=== PATIENT | female | born 1950 | race Two or more races ===

== ENCOUNTER 2024-09-16 03:01 | Emergency (ER) | payer MEDICARE, MEDICAID, SELFPAY ==
[2024-09-16 03:27] VITALS: PULSE 118; RESP 20; O2SAT 96; BMI 42.7
[2024-09-16 03:39] VITALS: BP 174/92; PULSE 70; RESP 18; TEMP 36.8; O2SAT 95
--- NOTE | 2024-09-16 03:40 | PD.EDARRY ---
ED Arrhythmia Palp. RME/HPI General Chief Complaint: Arrhythmia/Palpitations Stated Complaint: HEART PALPATATIONS Time Seen by Provider: 09/16/24 03:12 Arrival date/time: 09/16/24 03:01 RME / HPI RME / HPI narrative: Dr. Lyon?s Main ED Evaluation: 74yo female with a history of HTN, HLD BIBA from home presents to the ED for a chief complaint of palpitations. Patient states she started taking a new blood pressure medication yesterday morning (does not remember the name of it), reporting she's been feeling sick since. Patient states she woke up at 0200 having palpitations and was unable to go back to sleep, so she called 911 to come in for evaluation. Patient states she missed her dose of losartan last night. She denies any chest pain, shortness of breath, N/V or any other associated symptoms. No known allergies. Related Data Home Medications ?Medication ?Instructions ?Recorded ?Confirmed atorvastatin 40 mg tablet 40 mg PO QDAY 04/21/23 10/08/23 cholecalciferol (vitamin D3) 50 50 mcg PO QDAY 04/21/23 10/08/23 mcg (2,000 unit) capsule ferrous sulfate 325 mg (65 mg 325 mg PO QDAY 04/21/23 10/08/23 iron) tablet (FeroSul) metformin 500 mg tablet 500 mg PO BID 04/21/23 10/08/23 prazosin 1 mg capsule 1 mg PO TID 04/21/23 10/08/23 furosemide 20 mg tablet (Lasix) 20 mg PO QDAY 09/14/23 10/08/23 Allergies Allergy/AdvReac Type Severity Reaction Status Date / Time No Known Allergies Allergy Verified 09/22/23 04:57 Review of Systems Review of Systems Systems Reviewed: All systems reviewed, normal except as documented Past Medical History Past Medical History NEUROLOGIC: Negative Neurological Disorders, Cerebrovascular Accident, Transient Ischemic Attacks (TIA), Dementia, Alzheimer's Disease, Parkinson's Disease, Brain Tumor, Meningitis, Seizures, Epilepsy, Multiple Sclerosis, Cerebral Palsy, Amyotrophic Lateral Sclerosis (ALS/Marilyn Gehrig's), Guillain-[place] Syndrome, Spina Bifida, Paralysis, Peripheral Neuropathy, Martin's Palsy, Subdural Hematoma, Migraine, Head Trauma, Spinal Cord Injury or Traumatic Brain Injury CARDIAC: Positive Hypercholesterolemia and Hypertension; Negative Cardiac Disorders, Myocardial Infarction, Cardiac Arrhythmia, Atrial Fibrillation, Angina, Heart Murmur, Coronary Artery Disease, Atherosclerotic Heart Disease, Peripheral Vascular Disease, Aneurysm, Congestive Heart Failure, Congenital Heart Disease, Valvular Heart Disease, Rheumatic Fever, Cardiomyopathy, Edema, Pericarditis, Cellulitis, Deep Vein Thrombosis or Hypotension RESPIRATORY: Negative Chronic Obstructive Pulmonary Disease (COPD) or Asthma GASTROINTESTINAL: Positive Gastrointestinal Disorders, Gastroesophageal Reflux Disease and Obesity; Negative Hepatitis, Cirrhosis, Pancreatitis, Celiac Disease, Gall Bladder Disease, Gastrointestinal Bleed, Esophageal Varices, Shepard's Esophagus, Colitis, Ulcerative Colitis, Diverticulitis, Diverticulosis, Ulcer, Irritable Bowel, Crohn's Disease, Obstructive Bowel, Hiatal Hernia or Hemorrhoids GENITOURINARY: Negative Genitourinary Disorders, Renal Disease, Kidney Stones, Polycystic Kidney Disease, Neurogenic Bladder, Inguinal Hernia, Dialysis or Benign Prostatic Hyperplasia REPRODUCTIVE: Positive Previous Pregnancies; Negative Genital Herpes, Gonorrhea, Pelvic Inflammatory Disease, Syphilis or Uterine Prolapse MUSCULOSKELETAL: Positive Musculoskeletal Disorders and Arthritis; Negative Muscular Dystrophy, Myasthenia Gravis, Marfan's Syndrome, Rheumatoid Arthritis, Osteoporosis, Degenerative Disk Disease, Gout, Scoliosis, Carpal Tunnel Syndrome, Fibromyalgia, Fractures, Degenerative Joint Disease, Osteomyelitis or Poliovirus ENT: Negative Cataracts, Glaucoma, Blind, Retinal Detachment, Macular Degeneration, Ear Infection, Deafness, Head Trauma or Eye Prosthesis ENDOCRINE: Positive Endocrine Disorders and Diabetes Mellitus Type 2; Negative Diabetes Mellitus Type 1, Hypoglycemia, [place]'s Syndrome, [place]'s Disease, Hyperthyroidism, Hypothyroidism, Parathyroid Disease, Pituitary Disease, Systemic Lupus Erythematosus, Syndrome of Inappropriate Antidiuretic Hormone (SIADH), Adrenal Disease or Graves' Disease HEMATOLOGIC: Negative Blood Disorders, Anemia, Leukemia, Hemophilia, Thalassemia, Sickle Cell Disease or Clotting Problems PSYCHO/SOCIAL: Positive Anxiety OTHER HISTORY: Negative Hospitalization, Autoimmune Disease, Down Syndrome, Developmental Delay, Shingles, Falls, MRSA, Human Immunodeficiency Virus (HIV), Chicken Pox, Measles, Mumps, Rubella (Romanian Measles), Pertussis, Clostridium Difficile or Cancer Surgical History SURGICAL: Negative Pacemaker, Endocrine Surgery, Thyroidectomy, Ear Surgery, Tympanostomy Tube, Eye Surgery, Nose Surgery, Oral Surgery, Tonsillectomy, Adenoidectomy, Cochlear Implant, Corneal Transplant, Throat Surgery, Abdominal Surgery, Tracheostomy, Gastric Bypass Surgery, Gastrostomy, Bowel Surgery, Joint Replacement, Amputation, Open Reduction Internal Fixation, Arthroscopy, Neurologic Surgery or Brain Shunt Social History SMOKING STATUS: Never smoker SECOND HAND EXPOSURE: No SUBSTANCE USE: does not use ED Exam Narrative Physical exam: GENERAL APPEARANCE: alert and oriented x 4, well-developed, well-nourished, no acute distress VITALS: All vitals were reviewed and the pulse ox is 95% on room air, which is normal according to my interpretation. HEENT: Normocephalic, atraumatic; pupils equal, round, reactive to light; EOMI; mucous membranes pink, moist; oropharynx clear NECK: Supple LUNGS: CTABL; no wheezes, no rales, no rhonchi HEART: Regular rate, regular rhythm; normal S1, S2; no murmurs ABDOMEN: non distended; normal BS; soft, no tenderness, no guarding, no rebound; no masses, no organomegaly, no hernia BACK: no CVA tenderness EXTREMITIES: atraumatic; no edema NEUROLOGIC: awake; alert and oriented x4; cranial nerves II-XII grossly intact; no focal sensory or motor deficits PSYCHIATRIC: appropriate mood and affect SKIN: warm, dry, normal color; no rashes Course Course Course Narrative: CXR is ordered for determining the etiology of palpitations. Quality Measures none Arrhythmia/Palpitations MDM Narrative MDM Narrative:: Scribe Attestation: 09/16/24 - Britney Tipton am scribing for and in the presence of Dr. Lyon. Patient data External [place] [facility] [place] (Per chart review, patient was admitted here on 10/07/23 for Pyelonephritis, Urinary tract infection, History of ESBL E. coli infection.) Clinical information provided by:: patient Social determinants that could affect healthcare access:: none Patient has the following chronic illnesses:: HTN, HLD How is presenting disease/condition affected by chronic disease/condition?: uneffected by Evaluation data The following diagnostics were reviewed and interpreted by me:: lab results, radiology exam(s) and EKG tracing(s) Lab and/or radiology exams considered but not ordered:: none Interpretation Summary: CXR shows sharp costophrenic angles, normal cardiac silhouette, bilateral perihilar infiltrates, according to my interpretation. EKG done at 0346, NSR, rate of 68, left axis deviation, RBBB, generalized ST abnormalities, no STEMI, according to my interpretation. Labs are pending at sign out. Medications / Prescriptions Medications or Prescriptions considered but not ordered:: none Medication administrations:: see above, if any Consultations Consultation(s) initiated? (list below): No Diagnosis Differential diagnosis arrhythmia/palpitations: other (aFib RVR, SVT, anxiety reaction) Most likely diagnosis given after review of the tests above:: see clinical impression below Admission Indicated Admission indicated?: not indicated Admission Request Was there a request for admission?: No Disposition Plan Disposition Plan: other (specify) (Signed out to Dr. Ma at 0600 pending labs and final disposition.) Discharge Plan Prescriptions/Referrals Prescriptions/Med Rec: No Action atorvastatin 40 mg tablet 40 mg PO QDAY ferrous sulfate [FeroSul] 325 mg (65 mg iron) tablet 325 mg PO QDAY Patient Comments: take 1 tablet by mouth once daily cholecalciferol (vitamin D3) 50 mcg (2,000 unit) capsule 50 mcg PO QDAY Patient Comments: take 1 capsule by mouth once daily metformin 500 mg tablet 500 mg PO BID prazosin 1 mg capsule 1 mg PO TID Patient Comments: take 1 capsule by mouth twice a day furosemide [Lasix] 20 mg Tablet 20 mg PO QDAY Referrals: No Primary/Family,Physician [Primary Care Provider] - In 1 week Problem List Clinical Impression: Palpitations Patient/Caregiver Discharge Instructions Print Language: Somali
--- NOTE | 2024-09-16 03:42 | EKG_ITS ---
[facility] Test Date: 2024-09-16 Pat Name: JOHN FOOTE Department: Room: - Gender: Female Mail Room: : 1950 Requested By: Toni Hyde Order Number: [id number] Reading MD: Toni Hyde Measurements Intervals [place] Rate: 68 P: -13 [place]: 159 QRS: -39 QRSD: 145 T: 32 QT: 423 QTc: 453 Interpretive Statements SINUS RHYTHM LEFT AXIS DEVIATION [QRS AXIS < -30] RIGHT BUNDLE BRANCH BLOCK [120+ ms QRS DURATION, UPRIGHT V1, 40+ ms S IN I/aVL/V4/V5/V6] Compared to ECG 04/25/2023 04:22:25 Left-axis deviation now present /store/S0/[id number].pdf
--- NOTE | 2024-09-16 04:26 | XR_ITS ---
Examination: AP chest single view Technique one AP portable upright chest single view Exam date and time: September 16, 2024 0515 hours Comparison September 12, 2024 INDICATIONS: Chest pain today. FINDINGS: Mild pneumonia left base Mild prominence cardiac contour with moderate vascular congestion Intact osseous structures IMPRESSION: Mild pneumonia left base
[2024-09-16] MEDS: ACETAMINOPHEN 500 MG TABLET 1000 MG PO (04:52)
[2024-09-16 04:55] VITALS: PULSE 65
[2024-09-16 06:08] VITALS: BP 164/77; PULSE 67; RESP 20; TEMP 36.6; O2SAT 96
[2024-09-16 06:13] LABS: B-Type Natriuretic Peptide 94 pg/mL (0-100)
[2024-09-16 06:15] LABS: Alanine Aminotransferase 29 U/L (10-49); Albumin, Serum 3.6 gm/dL (3.4-4.8); Albumin/Globulin Ratio 1.6 (1.2-2.2); Alkaline Phosphatase 93 U/L (46-116); Anion Gap 4 (7-16); Aspartate Amino Transferase 22 U/L (0-34); BUN/Creatinine Ratio 26 Ratio (12-20); Bilirubin,Total 0.3 mg/dL (0.3-1.2); Blood Urea Nitrogen 23 mg/dL (9-23); Calcium 8.6 mg/dL (8.3-10.6); Calcium (Corrected) 8.9 mg/dL (8.5-10.1); Carbon Dioxide 34.5 mMol/L (20.0-31.0); Chloride 103 mMol/L (98-107); Creatinine (Component) 0.9 mg/dL (0.6-1.3); Estimated Creatinine Clearance 67.9 mL/min (>60); Globulin 2.3 gm/dL (2.3-3.5); Glucose 129 mg/dL (74-106); Lipase 44 U/L (12-53); Magnesium 2.1 mg/dL (1.6-2.6); Osmolality,Calculated 286 (275-295); Potassium 3.4 mMol/L (3.4-5.1); Sodium 141 mMol/L (136-145); Total Protein 5.9 gm/dL (5.7-8.2); Troponin I < 0.020 ng/mL (0.0-0.045); eGFR > 60 See Note
--- NOTE | 2024-09-16 06:46 | PD.EDADDENDU ---
Emergency Room Addendum Addendum Narrative: 0600: Care assumed from Dr. Lyon, the previous shift emergency physician. Past medical, surgical, social and family history reviewed. Vitals and home medications reviewed. I will assume the care of the patient at this time, pending labs and final disposition. Please refer to the emergency department record for history and examination from initial visit.?The following addendum documentation note is intended to reflect any pending information, findings, or radiology results not included in the patient?s initial chart. EMS notes reviewed by me. Nursing notes reviewed by me. Vital signs reviewed by me. [facility] medical records reviewed by me. Patient was admitted here 10/07/2023 through 10/14/2023 for acute pyelonephritis treatment and management. Chest xray interpreted by me shows a straighter heart border, left base atelectasis, otherwise no infiltrates. 0700: Patient reports feeling better. On examination patient is resting comfortably, in no distress. Patient aware of the pending CBC. 0744: Radiologist has interpreted CXR as left base pneumonia. Labs show no leukocytosis. Will DC patient home diagnosed with left basilar pneumonia and reaction to AMY inhibitor. I advised the patient take her antibiotics as prescribed and not resume the new medication. Advised she continue all of her other medications.
[2024-09-16 07:35] LABS: Basophils % (Auto) 0 % (0-2.5); Eosinophils # (Auto) 0.3 Thou/mm3 (0.0-0.5); Eosinophils % (Auto) 3 % (0-10); Hematocrit 38.7 % (36.0-46.0); Hemoglobin 12.6 g/dL (12.0-16.0); Immature Granulocytes % (Auto) 0 % (0-0); Immature Granulocytes Auto 0.03 Thou/mm3 (0.00-0.00); Lymphocytes # (Auto) 3.1 Thou/mm3 (1.0-4.8); Lymphocytes % (Auto) 30 % (10-50); Mean Corpuscular HGB Conc 32.6 g/dl (31.0-37.0); Mean Corpuscular Hemoglobin 30.2 pg (25.0-35.0); Mean Corpuscular Volume 93 fL (80-100); Monocytes # (Auto) 0.9 Thou/mm3 (0.0-0.8); Monocytes % (Auto) 9 % (0-12); Neutrophils # (Auto) 5.9 Thou/mm3 (1.8-7.7); Neutrophils % (Auto) 58 % (37-80); Nucleated Red Blood Cell % 0 /100 WBC (0); Platelet Count 272 Thou/mm3 (140-440); RDW Standard Deviation 44.1 fL (36.4-46.3); Red Blood Count 4.17 Miln/mm3 (4.00-5.20); White Blood Count 10.2 Thou/mm3 (3.6-11.0)
[2024-09-16 09:21] VITALS: BP 178/83; PULSE 63; RESP 18; TEMP 36.6
== END 2024-09-16 08:55 | disposition home or self-care (01) ==
PROVIDERS: Emergency Provider Emergency Medicine
DX: J18.9 Pneumonia, unspecified organism (principal); I45.10 Unspecified right bundle-branch block; I10 Essential (primary) hypertension; E78.00 Pure hypercholesterolemia, unspecified
CPT/HCPCS: 36415; 71045; 80053; 83690; 83735; 83880; 84484; 85025; 93005; 99283; A9270

== ENCOUNTER → 2024-11-11 | Outpatient (CLI) | payer MEDICARE, MEDICAID, SELFPAY ==
--- NOTE | 2024-11-11 | XR_ITS ---
Examination: Knee, left , 3 views Technique: Knee AP, lateral, oblique 3 views Date and time of exam: November 11, 2024 1216 hours INDICATIONS: Left knee pain beginning one year ago. FINDINGS: Severe osteopenia Severe narrowing medial patellofemoral joints No fractures IMPRESSION: Severe narrowing medial and patellofemoral joints
== END | disposition home or self-care (01) ==
PROVIDERS: PCP Orthopaedic Surgery; Referring Provider Orthopaedic Surgery; Visit Provider Orthopaedic Surgery
DX: M25.862 Other specified joint disorders, left knee (principal)
CPT/HCPCS: 73562

== ENCOUNTER 2025-03-25 12:06 | Inpatient (IN) | payer MEDICARE, MEDICAID, SELFPAY ==
[2025-03-25] VITALS (14 sets, daily range): BP systolic 114–183; BP diastolic 41–69; PULSE 60–80; RESP 16–88; TEMP 36.8–39.1; O2SAT 84–100; BMI 51.5
--- NOTE | 2025-03-25 12:25 | EKG_ITS ---
[facility] Test Date: 2025-03-25 Pat Name: JOHN FOOTE Department: Room: - Gender: Female [employer] T[employer]: : 1950 Requested By: Ac Chowdhury Order Number: [id number] Reading MD: Ac Chowdhury Measurements Intervals [place] Rate: 64 P: -15 [place]: 159 QRS: -28 QRSD: 145 T: 18 QT: 447 QTc: 462 Interpretive Statements SINUS RHYTHM WITH OCCASIONAL VENTRICULAR PREMATURE COMPLEXES BORDERLINE LEFT AXIS DEVIATION [QRS AXIS < -20] RIGHT BUNDLE BRANCH BLOCK [120+ ms QRS DURATION, UPRIGHT V1, 40+ ms S IN I/aVL/V4/V5/V6] Compared to ECG 09/16/2024 03:46:15 Ventricular premature complex(es) now present /store/S0/[id number]/[id number].pdf
--- NOTE | 2025-03-25 12:28 | XR_ITS ---
EXAMINATION: AP chest single view TECHNIQUE: AP portable upright chest single view Date and time: March 25, 2025, 1254 hours INDICATIONS: Sepsis alert FINDINGS: Mild pneumonia left base Normal heart size Prominent osteopenia IMPRESSION: Mild pneumonia left base
--- NOTE | 2025-03-25 12:29 | PD.EDWEAK ---
ED Weakness RME/HPI General Chief complaint: Weakness Stated complaint: WEAKNESS Time Seen by Provider: 03/25/25 12:17 Arrival date/time: 03/25/25 12:06 75-year-old female patient with significant history of hypertension diabetes mellitus, came in for evaluation regarding generalized body weakness. This been ongoing for the last few days. Patient also complained of shortness of breath and nonproductive cough for 3 days, severity mild. Denies any chest pain. Patient had a chronic wound to the right lower leg, last changed 2 days ago. No pain in the leg. No redness of the leg. Patient denies any abdominal pain but complain of dysuria also. No medication was taken prior to ER visit. Sepsis alert was initiated right away due to fever and hypoxia, satting 88% on room air. Currently satting 95% on 2 L. Related Data Home Medications ?Medication ?Instructions ?Recorded ?Confirmed atorvastatin 40 mg tablet 40 mg PO QDAY 04/21/23 10/08/23 cholecalciferol (vitamin D3) 50 50 mcg PO QDAY 04/21/23 10/08/23 mcg (2,000 unit) capsule ferrous sulfate 325 mg (65 mg 325 mg PO QDAY 04/21/23 10/08/23 iron) tablet (FeroSul) metformin 500 mg tablet 500 mg PO BID 04/21/23 10/08/23 prazosin 1 mg capsule 1 mg PO TID 04/21/23 10/08/23 furosemide 20 mg tablet (Lasix) 20 mg PO QDAY 09/14/23 10/08/23 Previous Rx's ?Medication ?Instructions ?Recorded amoxicillin 500 mg-potassium 1 tab PO TID #30 tabs 09/16/24 clavulanate 125 mg tablet (Augmentin) Allergies Allergy/AdvReac Type Severity Reaction Status Date / Time No Known Allergies Allergy Verified 09/22/23 04:57 Review of Systems Review of Systems Narrative Review of Systems: Review of system reviewed and within normal limits except mentioned in HPI ED Exam Narrative Physical exam: VITAL SIGNS: Reviewed. GENERAL APPEARANCE: Alert and interactive, follows commands, no acute distress, HEAD AND FACE: Non-traumatic. ENT: PERRL, pink conjunctivitis, eyelid no trauma, Mucous membrane moist. NECK: Supple, nontender, no nuchal rigidity. CHEST: No tenderness, no crepitus, no paradoxical movement, no retractions. LUNGS: Clear, well ventilated, symmetric, no rales, no wheezing, no ronchi, no stridor, good breath sounds bilaterally. HEART: Regular rate, regular rhythm, no murmur, no gallops. ABDOMEN: Soft, positive bowel sounds, nondistended, no guarding, nontender, no rebound, no masses, RECTAL: Deferred. GENITAL: Deferred. NEUROLOGICAL: Gross motor function intact sensory function intact, Appropriate for age. MUSCULOSKELETAL: low back nontender, full range of motion. EXTREMITIES: Healing wound noted to the right lateral lower leg, no redness noted nonfluctuant nontender, full range of motion. No drainage noted SKIN: Color pink, dry, no rash, no lacerations, no abrasions, no contusions. LYMPHATICS: Deferred. Course Quality Measures none Orders Category Date Time Status Admit to Inpatient Status Routine Admission 03/25/25 15:19 Active Patient Condition Routine Admission 03/25/25 15:18 Ordered COVID-19 Screening Questionnaire NOW Care 03/25/25 13:47 Active Mat Puncher STAT Care 03/25/25 12:25 Active Continuous Pulse Oximetry STAT Care 03/25/25 12:25 Completed Decision to Admit X1 Care 03/25/25 13:47 Active EKG (ED ONLY) *Do not use* NOW Care 03/25/25 12:25 Completed In and Out Catheter X1PRN Care 03/25/25 12:25 Completed Insert IV NOW Care 03/25/25 12:25 Active NPO STAT Care 03/25/25 12:25 Active Notify provider NEEDED Care 03/25/25 15:18 Active Strict Intake and Output Routine Care 03/25/25 12:25 Ordered EKG (ED Only) Stat Exams 03/25/25 12:25 Draft XR chest 1V SEPSIS PROTOCOL Stat Exams 03/25/25 12:28 Completed B-Type Natriuretic Peptide Stat Lab 03/25/25 12:55 Completed Blood Culture (Lab) Stat Lab 03/25/25 12:55 Received CBC AM DRAW Lab 03/26/25 05:00 Ordered CBC AM DRAW Lab 03/27/25 05:00 Ordered CBC AM DRAW Lab 03/28/25 05:00 Ordered CBC AM DRAW Lab 03/29/25 05:00 Ordered CBC AM DRAW Lab 03/30/25 05:00 Ordered CBC Stat Lab 03/25/25 12:55 Completed Comprehensive Metabolic Panel AM DRAW Lab 03/26/25 05:00 Ordered Comprehensive Metabolic Panel AM DRAW Lab 03/27/25 05:00 Ordered Comprehensive Metabolic Panel AM DRAW Lab 03/28/25 05:00 Ordered Comprehensive Metabolic Panel AM DRAW Lab 03/29/25 05:00 Ordered Comprehensive Metabolic Panel AM DRAW Lab 03/30/25 05:00 Ordered Comprehensive Metabolic Panel Stat Lab 03/25/25 12:55 Completed LDH (Lactate Dehydrogenase) Stat Lab 03/25/25 12:55 Completed Lactate (Lactic Acid) Stat Lab 03/25/25 12:55 Completed Lipase Stat Lab 03/25/25 12:55 Completed Magnesium AM DRAW Lab 03/26/25 05:00 Ordered Magnesium Stat Lab 03/25/25 12:55 Completed Partial Thromboplastin Time Stat Lab 03/25/25 12:55 Completed Phosphorous AM DRAW Lab 03/26/25 05:00 Ordered Phosphorous Stat Lab 03/25/25 12:55 Completed Procalcitonin Stat Lab 03/25/25 12:55 Completed Prothrombin Time with INR AM DRAW Lab 03/26/25 05:00 Ordered Prothrombin Time with INR Stat Lab 03/25/25 12:55 Completed Troponin I Routine Lab 03/25/25 15:24 Ordered Troponin I Stat Lab 03/25/25 12:55 Completed Urinalysis, C/S if Indicated Stat Lab 03/25/25 12:37 Completed Urine Culture Stat Lab 03/25/25 12:37 Received VBG [Venous Blood Gas] Stat Lab 03/25/25 12:55 Completed Acetaminophen Tab [Tylenol ES Tab] Med 03/25/25 20:00 Active 1,000 mg PO Q6H PRN Acetaminophen Tab [Tylenol ES Tab] Med 03/25/25 13:45 Discontinued 1,000 mg PO X1 ONE Azithromycin Inj [Zithromax Inj] 500 mg Med 03/26/25 09:00 Pending Sodium Chloride 0.9% 250 ml [Ns] 250 ml IV QDAY Azithromycin Inj [Zithromax Inj] 500 mg Med 03/25/25 13:37 Discontinued Sodium Chloride 0.9% 250 ml [Ns] 250 ml IV X1 Heparin Inj Med 03/25/25 22:00 Active 5,000 unit SC Q8HR Potassium Chloride [K-Dur] Med 03/25/25 13:45 Discontinued 40 meq PO X1 ONE Ringers Lactated 1000 ml [Lactated Ringers] 1,000 ml Med 03/25/25 12:25 Discontinued IV 999 mls/hr cefTRIAXone/D5w 1gm IV premix [Rocephin/D5w 1gm IV Med 03/26/25 09:00 Active premix] 1 gm in 50 ml IV QDAY cefTRIAXone/D5w 1gm IV premix [Rocephin/D5w 1gm IV Med 03/25/25 12:25 Discontinued premix] 1 gm in 50 ml IV X1 Code Status Routine Oth 03/25/25 15:18 Ordered Oxygen Delivery NOW RT 03/25/25 12:25 Completed Oxygen Delivery PRN RT 03/25/25 15:18 Active Vital Signs Vital signs: Vital Signs Temperature 100.7 F H 03/25/25 12:07 Pulse Rate 75 03/25/25 12:07 Respiratory Rate 20 03/25/25 12:07 Blood Pressure 114/69 03/25/25 12:07 Pulse Oximetry (%) 94 L 03/25/25 12:07 Oxygen Delivery Method Nasal Cannula 03/25/25 12:07 Oxygen Flow Rate 3 03/25/25 12:07 Weakness MDM Narrative MDM Narrative:: 03/25/25 12:06 75-year-old female patient with significant history of hypertension diabetes mellitus, came in for evaluation regarding generalized body weakness. This been ongoing for the last few days. Patient also complained of shortness of breath and nonproductive cough for 3 days, severity mild. Denies any chest pain. Patient had a chronic wound to the right lower leg, last changed 2 days ago. No pain in the leg. No redness of the leg. Patient denies any abdominal pain but complain of dysuria also. No medication was taken prior to ER visit. Sepsis alert was initiated right away due to fever and hypoxia, satting 88% on room air. Currently satting 95% on 2 L. Chest x-ray showed pneumonia, urinalysis positive for UTI, CBC showed leukocytosis of 12.4 Pro-Peter slightly elevated lactic acid is normal. Potassium 2.9. Troponin slightly elevated 0.055. EKG showed normal sinus rhythm, ventricular rate of 64 bpm, no ST segment elevation depression noted. Right bundle branch block Patient received potassium replacement, IV fluids, Zithromax IV and ceftriaxone IV. Patient was also given Tylenol. Plan of care discussed with the patient regarding admission, and agrees to be admitted. Discussed the case with hospitalist, and admitted the patient Patient data External records reviewed:: None Clinical information provided by:: none Social determinants that could affect healthcare access:: none Patient has the following chronic illnesses:: Diabetes hypertension How is presenting disease/condition affected by chronic disease/condition?: exacerbated by Evaluation data The following diagnostics were reviewed and interpreted by me:: lab results, radiology exam(s) and EKG tracing(s) Lab and/or radiology exams considered but not ordered:: None Interpretation Summary: See MDM Medications / Prescriptions Medications or Prescriptions considered but not ordered:: None Medication administrations:: Medication Administration History Acetaminophen (Acetaminophen 500 Mg Tablet) 1,000 mg PO Q6H PRN PRN Reason: Fever >101.5 Stop: 04/24/25 19:59 Heparin Sodium (Porcine) (Heparin Sod Inj 5000 Unit/Ml Vial) 5,000 unit SC Q8HR KUMAR Stop: 04/08/25 21:59 Ceftriaxone Sodium/Dextrose (Rocephin/D5w 1gm Iv Premix) 1 gm in 50 mls @ 100 mls/hr IV QDAY KUMAR Stop: 04/02/25 08:59 Azithromycin 500 mg/ Sodium (Chloride) 250 mls @ 250 mls/hr IV QDAY KUMAR Stop: 04/02/25 08:59 Discontinued Medications Acetaminophen (Acetaminophen 500 Mg Tablet) 1,000 mg PO X1 ONE Stop: 03/25/25 13:46 Last Admin: 03/25/25 14:11 Dose: 1,000 mg Documented By: VG Lactated Ringer's (Lactated Ringers) 1,000 mls @ 999 mls/hr IV .Q1H1M ONE Stop: 03/25/25 13:25 Last Infusion: 03/25/25 15:11 Dose: Infused Documented By: Admin: 03/25/25 13:42 Dose: 999 mls/hr Documented By: GM Ceftriaxone Sodium/Dextrose (Rocephin/D5w 1gm Iv Premix) 1 gm in 50 mls @ 100 mls/hr IV X1 ONE Stop: 03/25/25 12:54 Last Infusion: 03/25/25 13:42 Dose: Infused Documented By: Admin: 03/25/25 13:01 Dose: 100 mls/hr Documented By: GM Azithromycin 500 mg/ Sodium (Chloride) 250 mls @ 250 mls/hr IV X1 ONE Stop: 03/25/25 14:36 Last Admin: 03/25/25 14:11 Dose: 250 mls/hr Documented By: DEMARCUS Potassium Chloride (Potassium Chloride 20 Meq Tabcr) 40 meq PO X1 ONE Stop: 03/25/25 13:46 Last Admin: 03/25/25 14:12 Dose: 40 meq Documented By: DEMARCUS See above Consultations Consultation(s) initiated? (list below): No Diagnosis Weakness Differential Diagnosis: sepsis, dehydration and other (Pneumonia, UTI) Most likely diagnosis given after review of the tests above:: Sepsis secondary to pneumonia and UTI Admission Indicated Admission indicated?: indicated Admission Request Was there a request for admission?: Yes Admission Attestation Admission request attestation: Discussed case with [] from Hospitalist service regarding admission. Discussed patients ED course, exam findings, labs, and radiology results. The Hospitalist [agrees,declines] to accept the patient for admission. Disposition Plan Disposition Plan: Admit Discharge Plan Plan Patient Disposition: Admit Acute Care w/in Hospital Discharge Disposition comment: Stable Problem List Clinical Impression: Sepsis, Urinary tract infection, Pneumonia
[2025-03-25 12:43] LABS: Collection Type, Urine Clean Catch; Squamous Epithelial Cell,Urine 0 /hpf (0-5)
[2025-03-25 13:01] LABS: Lactate (Lactic Acid) 0.9 mMol/L (0.4-2.0)
[2025-03-25] MEDS: cefTRIAXone/D5w 1gm IV premix 1 GM/50 ML BAG IV (13:01)
[2025-03-25 13:02] LABS: Base Excess, Venous 8 (-3-3); Basophils # (Auto) 0.0 Thou/mm3 (0.0-0.2); Basophils % (Auto) 0 % (0-2.5); Eosinophils # (Auto) 0.0 Thou/mm3 (0.0-0.5); Eosinophils % (Auto) 0 % (0-10); Hematocrit 36.2 % (36.0-46.0); Hemoglobin 11.9 g/dL (12.0-16.0); Immature Granulocytes Auto 0.05 Thou/mm3 (0.00-0.00); Lymphocytes # (Auto) 2.0 Thou/mm3 (1.0-4.8); Lymphocytes % (Auto) 16 % (10-50); Mean Corpuscular HGB Conc 32.9 g/dl (31.0-37.0); Mean Corpuscular Hemoglobin 30.3 pg (25.0-35.0); Mean Corpuscular Volume 92 fL (80-100); Monocytes # (Auto) 1.6 Thou/mm3 (0.0-0.8); Monocytes % (Auto) 13 % (0-12); Neutrophils # (Auto) 8.6 Thou/mm3 (1.8-7.7); Neutrophils % (Auto) 70 % (37-80); Nucleated Red Blood Cell # 0.00 Thou/mm3 (0.00-0.00); Nucleated Red Blood Cell % 0 /100 WBC (0); O2 Saturation, Venous 69 % (96-97); PCO2, Venous 55 mmHg (36-56); PO2, Venous 37 mmHg (15-58); Platelet Count 247 Thou/mm3 (140-440); RDW Standard Deviation 45.1 fL (36.4-46.3); Red Blood Count 3.93 Miln/mm3 (4.00-5.20); White Blood Count 12.4 Thou/mm3 (3.6-11.0); pH, Venous 7.40 (7.33-7.66)
[2025-03-25 13:07] LABS: Bacteria,Urine Rare; Bilirubin,Urine Negative (Negative); Blood,Urine 1+ (Negative); Color,Urine Yellow (Lt Yel-Yel); Glucose, Urine Negative (Negative); Ketones,Urine Negative (Negative); Leukocyte Esterase,Urine Positive (Negative); Nitrite,Urine Positive (Negative); PH,Urine 6.0 (5.0-7.0); Protein,Urine Trace (Neg - Trace); RBC,Urine 10 /hpf (0-3); Specific Gravity,Urine 1.012 (1.001-1.035); Urobilinogen,Urine Negative mg/dL (0.0-1.0); WBC,Urine 320 /hpf (0-5)
[2025-03-25 13:09] LABS: Culture Indicated,Urine Yes
[2025-03-25 13:10] LABS: Clarity,Urine Hazy (Clear/Hazy)
[2025-03-25 13:20] LABS: INR 1.3 (0.9-1.3); Partial Thromboplastin Time 28.0 Seconds (22.0-36.0); Prothrombin Time 13.2 Seconds (9.0-12.2)
[2025-03-25 13:31] LABS: B-Type Natriuretic Peptide 373 pg/mL (0-100)
[2025-03-25 13:32] LABS: Alanine Aminotransferase 11 U/L (10-49); Albumin, Serum 3.6 gm/dL (3.4-4.8); Albumin/Globulin Ratio 1.5 (1.2-2.2); Alkaline Phosphatase 69 U/L (46-116); Anion Gap 8 (7-16); Aspartate Amino Transferase 16 U/L (0-34); BUN/Creatinine Ratio 14 Ratio (12-20); Bilirubin,Total 0.7 mg/dL (0.3-1.2); Blood Urea Nitrogen 15 mg/dL (9-23); Calcium 9.3 mg/dL (8.3-10.6); Calcium (Corrected) 9.6 mg/dL (8.5-10.1); Carbon Dioxide 33.5 mMol/L (20.0-31.0); Chloride 98 mMol/L (98-107); Creatinine (Component) 1.1 mg/dL (0.6-1.3); Estimated Creatinine Clearance 59.0 mL/min (>60); Globulin 2.4 gm/dL (2.3-3.5); Glucose 121 mg/dL (74-106); Lipase 22 U/L (12-53); Magnesium 1.8 mg/dL (1.6-2.6); Osmolality,Calculated 279 (275-295); Phosphorous 3.6 mg/dL (2.4-5.1); Potassium 2.9 mMol/L (3.4-5.1); Procalcitonin 0.60 ng/ml (0.0-0.49); Sodium 139 mMol/L (136-145); Total Protein 6.0 gm/dL (5.7-8.2); eGFR 52 See Note
[2025-03-25 13:33] LABS: Troponin I 0.055 ng/mL (0.0-0.045)
[2025-03-25] MEDS: RINGERS LACTATED 1000 ML 1,000 ML 999 ML IV (13:42)
[2025-03-25] MEDS: AZITHROMYCIN INJ 500 MG in SODIUM CHLORIDE 0.9% 250 ML 250 ML 250 MG IV (14:11)
[2025-03-25] MEDS: ACETAMINOPHEN 500 MG TABLET 1000 MG PO (14:11)
[2025-03-25 14:35] LABS: LDH (Lactate Dehydrogenase) 155 U/L (120-246)
--- NOTE | 2025-03-25 15:31 | ESHP_ITS ---
Documentation for date of: 03/25/25 HPI History of Present Illness History of present illness: HPI: * 75-year-old female past medical history of diabetes, hypertension, heart failure, depression, hyperlipidemia, presented to the ED with 3-day history of nausea and vomiting. Patient denies hematochezia or hematemesis. Patient also denied diarrhea. She has had associated fever and chills and a cough with mild shortness of breath. She denies chest pain or palpitations. * Sepsis alert was initiated in the ED due to fever and hypoxia, the patient was satting at 88% on room air. She met 2 out of 4 SIRS criteria on arrival with a fever of 100.7 and a white blood cell count of 12.4. * The patient was admitted for sepsis secondary to suspected pneumonia versus UTI. ED course: * Vitals: On arrival significant for a temp of 100.7. O2 saturation of 88% on room air. 2 hours after arrival the patient was tachypneic with a respiratory rate of 27, she became afebrile. * Labs: Significant labs included White blood cell count of 12.4, PT 13.2, VBG pH of 7.4, VBG PCO2 of 55, VBG pCO2 of 37, VBG O2 saturation of 69%. Potassium 2.9. BNP 373. Procalcitonin 0.6. * Urine: Positive for 1+ blood, nitrite positive, leukocyte esterase positive, 10 RBCs, 320 WBCs. * Imaging: Chest x-ray showed mild pneumonia in the left base. EKG showed a sinus rhythm, right bundle branch block, ventricular premature complexes. * Patient was administered 1 g of ceftriaxone, 1 L of LR, 500 mg azithromycin, 1 g of acetaminophen, and 40 mill EQ's of potassium. History: (Patient is a poor historian, patient's daughter was contacted helps with history) * Past medical history: Diabetes type II, hypertension, unspecified heart failure, depression, hyperlipidemia * Surgical history: Denies * Social history: Lives alone, adjacent to daughter * Allergies: No known drug allergies * Home medications: Per patient's daughter, the patient takes prazosin 1 mg 3 times daily, losartan 50 mg twice daily, furosemide 20 mg daily, hydrochlorothiazide 20 mg daily, Lyrica 75 twice daily, Ozempic 1 mg, fluoxetine 40 mg daily, atorvastatin 40 mg daily Review of Systems Review of Systems Narrative Review of Systems: Review of Systems: * General: Admits to fever, chills of 3 days duration. * HEENT: Denies headache, congestion, or sore throat. * Cardiac: Denies chest pain or palpitations. * Pulmonary: Admits to shortness of breath, 3 days duration. * GI: Admits to nausea and vomiting, denies hematemesis. Diffuse abdominal pain . Denies diarrhea, constipation, melena, or hematochezia. * : Denies dysuria, hematuria, frequency, or urgency. * MSK: Denies pain in the extremities, joints, or myalgias. * Neuro: Denies weakness, numbness, vision changes, or speech difficulty. Exam Vital Signs Temp Pulse Resp BP Pulse Ox O2 Del Method O2 Flow Rate 98.7 F 62 27 H 153/43 H 98 Nasal Cannula 3 03/25/25 14:21 03/25/25 14:21 03/25/25 14:21 03/25/25 14:21 03/25/25 14:21 03/25/25 14:21 03/25/25 14:21 Narrative Exam General: Obese lady. Lao-speaking. Patient fell asleep between questions. Patient seems slightly confused. Neurologic: GCS 13. No gross neurological deficit, and patient able to move all 4 extremities. HEENT: Normocephalic, atraumatic, mucous membranes dry. Pupils reactive to light. Heart: Regular rate and rhythm, normal S1 and S2, no murmurs. Lungs: Decreased breath sounds in the left base, crackles in the right base, clear to auscultation in the apices bilaterally. Abdomen: Obese, diffuse tenderness on palpation. No guarding or rebound tenderness. Extremities: Chronic wrapped wound on the right lower extremity. No edema. 2+ radial and dorsalis pedis pulses bilaterally. Skin: Warm. Dry. No rash or ecchymoses. Results: Labs 03/26/25 05:38 03/26/25 05:38 Labs: Short CBC 03/25/25 Range/Units 12:55 WBC 12.4 H (3.6-11.0) Thou/mm3 Hgb 11.9 L (12.0-16.0) g/dL Hct 36.2 (36.0-46.0) % Plt Count 247 (140-440) Thou/mm3 BMP 03/25/25 12:55 Sodium 139 Potassium 2.9 L Chloride 98 Carbon Dioxide 33.5 H BUN 15 Creatinine 1.1 Glucose 121 H Calcium 9.3 Cardiac Enzymes 03/25/25 Range/Units 12:55 Troponin I 0.055 H* (0.0-0.045) ng/mL Liver Function 03/25/25 Range/Units 12:55 Total Bilirubin 0.7 (0.3-1.2) mg/dL AST 16 (0-34) U/L ALT 11 (10-49) U/L Alkaline Phosphatase 69 (46-116) U/L Albumin 3.6 (3.4-4.8) gm/dL Urine 03/25/25 Range/Units 12:37 Urine Color Yellow (Lt Yel-Yel) Urine Clarity Hazy (Clear/Hazy) Urine pH 6.0 (5.0-7.0) Ur Specific [place] 1.012 (1.001-1.035) Urine Protein Trace (Neg - Trace) Urine Glucose (UA) Negative (Negative) ABG Interpretation ABG results: 03/25/25 12:55 VBG pH 7.40 VBG pCO2 55 VBG pO2 37 VBG Base Excess 8 H Quality Measures Quality Measures none Advance care planning discussed with:: patient and child Medications Home Medications and Allergies Home Medications ?Medication ?Instructions ?Recorded ?Confirmed ?Type atorvastatin 40 mg tablet 40 mg PO QDAY 04/21/2303/25 History cholecalciferol (vitamin D3) 50 50 mcg PO QDAY 3 03/25/25 History mcg (2,000 unit) capsule ferrous sulfate 325 mg (65 mg 325 mg PO QDAY 04/21/23 10/08/23 History iron) tablet (FeroSul) metformin 500 mg tablet 500 mg PO BID 04/21/2310/07 History prazosin 1 mg capsule 1 mg PO TID 04/21/23 5 History furosemide 20 mg tablet (Lasix) 20 mg PO QDAY 09/14/23 03/25/25 History Allergies Allergy/AdvReac Type Severity Reaction Status Date / Time No Known Allergies Allergy Verified 09/22/23 04:57 Visit Medications Acetaminophen (Acetaminophen 325 Mg Tablet) 1,000 mg PO Q6H PRN PRN Reason: Fever >101.5 Stop: 04/24/25 19:59 Heparin Sodium (Porcine) (Heparin Sod Inj 5000 Unit/Ml Vial) 5,000 unit SC Q8HR KUMAR Stop: 04/08/25 21:59 Ceftriaxone Sodium/Dextrose (Rocephin/D5w 1gm Iv Premix) 1 gm in 50 mls @ 100 mls/hr IV QDAY KUMAR Stop: 04/02/25 08:59 Azithromycin 500 mg/ Sodium (Chloride) 250 mls @ 250 mls/hr IV QDAY KUMAR Stop: 04/02/25 08:59 Discontinued Medications Acetaminophen (Acetaminophen 500 Mg Tablet) 1,000 mg PO X1 ONE Stop: 03/25/25 13:46 Last Admin: 03/25/25 14:11 Dose: 1,000 mg Lactated Ringer's (Lactated Ringers) 1,000 mls @ 999 mls/hr IV .Q1H1M ONE Stop: 03/25/25 13:25 Last Infusion: 03/25/25 15:11 Dose: Infused Ceftriaxone Sodium/Dextrose (Rocephin/D5w 1gm Iv Premix) 1 gm in 50 mls @ 100 mls/hr IV X1 ONE Stop: 03/25/25 12:54 Last Infusion: 03/25/25 13:42 Dose: Infused Azithromycin 500 mg/ Sodium (Chloride) 250 mls @ 250 mls/hr IV X1 ONE Stop: 03/25/25 14:36 Last Admin: 03/25/25 14:11 Dose: 250 mls/hr Potassium Chloride (Potassium Chloride 20 Meq Tabcr) 40 meq PO X1 ONE Stop: 03/25/25 13:46 Last Admin: 03/25/25 14:12 Dose: 40 meq Assessment & Plan Plan Summary: 75-year-old female past medical history of diabetes, hypertension, heart failure, depression, hyperlipidemia, presented to the ED with 3-day history of nausea and vomiting. Sepsis alert was initiated in the ED due to fever and hypoxia, the patient was satting at 88% on room air. She met 2 out of 4 SIRS criteria on arrival with a fever of 100.7 and a white blood cell count of 12.4. The patient was admitted for sepsis secondary to suspected pneumonia versus UTI. #Sepsis secondary to #Community-acquired pneumonia versus #Urinary tract infection * Patient met 2 out of 4 SIRS criteria on arrival, fever 100.7, WBC 12.4 * Chest x-ray showed evidence of bibasilar pneumonia * Urinalysis showed 1+ blood, nitrite positive, leukocyte esterase positive, 10 RBCs, 320 WBCs * Patient was given Tylenol in the ED, became afebrile * Curb 65 score 2. 6.8% 30-day mortality Plan: * Ceftriaxone 1 g daily * Azithromycin 500 mg daily Reassessment: * Follow-up blood cultures * Follow-up urine cultures * Trend WBC count #Hypokalemia * Potassium 2.9 on arrival, received 4 mill EQ in the ED Plan: * Will trend with daily labs and replete as necessary #Elevated troponins (Resolved) #NSTEMI type II (Resolved) * Patient's tropes were elevated on arrival, down-trended * EKG showed a sinus rhythm, right bundle branch block, ventricular premature complexes. #Iae-[id number] type 2 diabetes * Per patient's daughter the patient takes Ozempic 1 mg * Patient also take metformin 500 BID at home Plan: * Pending med rec * Pending A1C * [place] sliding scale, glucose checks before meals (pending swallow screen) #Heart failure with preserved ejection fraction #CHF exacerbation * Per patient's daughter, the patient was prescribed prazosin 1 mg 3 times daily in [place] for her heart failure * Also per patient's daughter, the patient takes furosemide and hydrochlorothiazide * Echo on 04/21/2023 showed an ejection fraction of 60-65% * Patient has crackles on exam * BNP 373 Plan: * Pending med rec * Consider starting home meds * Fluid restriction 1800 mL * Strict ins & outs * Lasix 20 mg BID Reassessment: * Echo ordered #Hypertension * Per patient's daughter the patient has a history of hypertension and takes losartan * Difficult to take the patient's blood pressure due to body habitus Plan: * Pending med rec * Consider starting home meds #Anxiety/depression * Per patient's daughter the patient takes fluoxetine and Lyrica Plan: * Pending med rec * Consider starting home meds #Hyperlipidemia * Per patient's daughter patient takes atorvastatin 40 mg Plan: * Will resume home atorvastatin 40 mg daily Hospital Maintenance: DVT ppx: Subcu heparin 5000 units Q8 GI ppx: Not indicated Diet: Pending swallow eval IV lines: Peripheral IVs Code status: Full code Dispo: Patient admitted to telemetry for sepsis secondary to pneumonia versus UTI. Treating with ceftriaxone and azithromycin. Patient was seen and discussed with my attending physician Dr. Shimon UREÑA and my senior resident Dr. Lou UREÑA PGY-3. Senthil Cordero DO PGY-1. Attending Provider Attestation/Addendum 75-year-old female with diabetes mellitus, hypertension, anxiety disorder was admitted for sepsis secondary to community-acquired pneumonia with congestive heart failure exacerbation. The patient will be admitted for treatment of pneumonia congestive heart failure. Close monitoring recommended. Check culture results. Monitor body weight and urine output. I discussed with and supervised the resident physician who took care of this patient. I agree with the assessment and plan as above.
--- NOTE | 2025-03-25 15:52 | ECHO_ITS ---
Patient Info Name: Odalis Chan Age: 75 years : 1950 Gender: Female Ht: 163 cm Wt: 136 kg BSA: 2.56 m2 BP: 120 / 41 mmHg Heart Rhythm: Sinus Rhythm Exam Date: 03/25/2025 4:07 PM Admit Date: 03/25/2025 Site: [facility] Patient Status: I Technical Quality: Poor Exam Type: CA echo doppler complete Reason for Poor Study: body habitus, poor patient cooperation Online Program Coordinator: Katelyn Thao Ordering Physician: Senthil Cordero Study Info Indications History of heart failure per patient's daughter. - Primary Location: [facility] Left Ventricular Outflow Tract Name Value Normal LVOT 2D LVOT Diameter 1.8 cm LVOT Doppler LVOT Peak Velocity 151 cm/s LVOT Mean Gradient 4 mmHg LVOT VTI 35 cm LVOT VTI/AV VTI Ratio 0.5 LVOT Stroke Volume 89 ml Pulmonic Valve Name Value Normal PV Doppler PV Peak Velocity 122 cm/s Mitral Valve Name Value Normal MV Doppler MV Mean Gradient 6 mmHg MV Decel [place] 379 cm/s2 MV PHT 107 ms MV Area (PHT) 2.1 cm2 4.0-5.0 MV Area (Cont Eq VTI) 1.3 cm2 MV Diastolic Function MV E Peak Velocity 140 cm/s MV A Peak Velocity 114 cm/s MV E/A 1.2 Tricuspid Valve Name Value Normal TV Regurgitation Doppler TR Peak Velocity 246 cm/s Estimated PAP/RSVP RA Pressure 5 mmHg <=5 PA Systolic Pressure 29 mmHg <36 RV Systolic Pressure 29 mmHg <36 Aorta Name Value Normal Ascending Aorta Ao Root Diameter (MM) 2.4 cm Ao Root Diam Index (MM) 0.9 cm/m2 Aortic Valve Name Value Normal AV 2D/MM AV Cusp Sep (MM) 1.5 cm AV Doppler AV Peak Velocity 334 cm/s AV Mean Gradient 23 mmHg AV VTI 68 cm AV Area (Cont Eq VTI) 1.3 cm2 >=3.0 AV Area (Cont Eq Con) 1.2 cm2 AV DI (Con) 0.45 AV Regurgitation 2D LVOT Area 2.5 cm2 Ventricles Name Value Normal LV Dimensions 2D/MM LVOT Diameter 1.8 cm LV Fractional Shortening/Ejection Fraction 2D/MM LV Diastolic Volume (4C MOD) 122 ml LV EF (4C MOD) 66 % LV Diastolic Volume (2C MOD) 111 ml LV EF (2C MOD) 61 % LV Diastolic Volume (BP MOD) 117 ml 46-106 LV Diastolic Volume Index (BP MOD) 46 ml/m2 29-61 LV Systolic Volume (BP MOD) 43 ml 14-42 LV Systolic Volume Index (BP MOD) 17 ml/m2 8-24 LV EF (BP MOD) 63 % 54-74 LV Diastolic Length (4C) 7.2 cm LV Systolic Length (4C) 5.7 cm LV Stroke Volume (4C MOD) 80 ml Atria Name Value Normal LA Dimensions LA Dimension (MM) 4.7 cm 2.7-3.8 LA Volume (4C A-L) 52 ml LA Volume (BP A-L) 76 ml Left Ventricle Left ventricular chamber dimension is normal. Left ventricular systolic function is normal with visually estimated ejection fraction of 60-65%. There is normal geometry noted in the left ventricle. Left ventricular segmental wall motion is normal. There is grade I diastolic dysfunction in the left ventricle. Right Ventricle Right ventricular chamber dimension is normal. Right ventricular systolic function is normal. Left Atrium Left atrial chamber dimension is mildly enlarged. Normal IVC and no pericardial effusion. Right Atrium Right atrial chamber dimension is normal. Aortic Valve The aortic valve is trileaflet. There is moderate aortic valve sclerosis. There is moderate aortic valve stenosis with a peak velocity of 334 cm/s, mean gradient of 23 mmHg, and aortic valve area of 1.2 cm2. trace AI. There is trace aortic valve regurgitation. Pulmonic Valve The pulmonic valve is normal. There is no pulmonic valve stenosis. There is no pulmonic regurgitation. Mitral Valve The mitral valve has normal leaflets. There is mild mitral valve stenosis. There is trace mitral valve regurgitation. Tricuspid Valve The tricuspid valve leaflets are normal. There is no tricuspid valve stenosis. There is trace tricuspid valve regurgitation. No pulmonary hypertension, estimated pulmonary arterial systolic pressure is 29 mmHg and systemic blood pressure of 120 mmHg in systole. Pericardium/Pleural The pericardium appears normal. There is no pericardial effusion. No pleural effusion visualized. Inferior Vena Cava Normal inferior vena cava with <50% collapse upon inspiration consistent with normal right atrial pressure, 5 mmHg. Aorta The aortic measurements are indexed to age and body surface area. The abdominal aorta is not well visualized. Summary 1. Left ventricle size is normal and systolic function is normal. Estimated ejection fraction is 60-65%. There is grade I diastolic dysfunction. 2. Right ventricle chamber size is normal and systolic function is normal. Estimated RVSP is 29 mmHg. 3. There is moderate aortic valve stenosis with a peak velocity of 334 cm/s, mean gradient of 23 mmHg, and aortic valve area of 1.2 cm2. trace AI. 4. There is moderate to severe MAC with thickened and calcified leaflets. Mild mitral valve stenosis with mean PG of 6 mm hg and trace regurgitation. 5. There is trace to mild tricuspid valve regurgitation and trace AI. 6. Left atrial chamber dimension is mildly enlarged. Normal IVC and no pericardial effusion. Report Signatures Finalized by Dmitriy Roldan on 03/25/2025 06:36 PM
[2025-03-25 16:16] LABS: Troponin I 0.048 ng/mL (0.0-0.045)
--- NOTE | 2025-03-25 17:08 | PC.CC ---
Patient is a 75 year-old female who presents to the hospital for Sepsis. TARRING MACHINE OPERATORTara made [id number] contact with patient introduced self, role, and reason for visit. Patient appeared alert and oriented to self, location, and situation. TARRING MACHINE OPERATOR, discussed limits of confidentiality. Patient made appropriate eye contact and engaged in initial assessment. ? Patient confirmed information on demographics and reports to living alone in her apartment. Patient reports that in the event she unable to make her own medical decisions her medical decision maker is her daughter, Monica Sanchez . Patient reports at home she ambulates with a wheelchair. She is able to complete her ADLs but assistance is needed her daughter Monica helps her. Patient does not require oxygen while at home. Patient receives primary care with Meghana Sultana. Upon discharge patient reports she plans to go back home. rehabilitation services manager to follow up with any discharge needs.
[2025-03-25] MEDS: HEPARIN SOD INJ 5000 UNIT/ML VIAL SC (22:15)
[2025-03-26] VITALS (11 sets, daily range): BP systolic 150–174; BP diastolic 64–88; PULSE 61–94; RESP 16–88; TEMP 36.6–37.1; O2SAT 92–99; BMI 51.5; BMI 51.2
[2025-03-26] MEDS: ONDANSETRON INJ 2 MG/ML INJ 2 ML 4 MG IVP ×2 (02:46→08:24)
[2025-03-26] MEDS: ACETAMINOPHEN 500 MG TABLET 1000 MG PO (02:46)
[2025-03-26] MEDS: HEPARIN SOD INJ 5000 UNIT/ML VIAL SC ×3 (06:03→21:18)
[2025-03-26 06:22] LABS: Basophils # (Auto) 0.0 Thou/mm3 (0.0-0.2); Basophils % (Auto) 0 % (0-2.5); Eosinophils # (Auto) 0.1 Thou/mm3 (0.0-0.5); Eosinophils % (Auto) 1 % (0-10); Hematocrit 37.2 % (36.0-46.0); Hemoglobin 12.1 g/dL (12.0-16.0); Immature Granulocytes Auto 0.05 Thou/mm3 (0.00-0.00); Lymphocytes # (Auto) 1.4 Thou/mm3 (1.0-4.8); Lymphocytes % (Auto) 11 % (10-50); Mean Corpuscular HGB Conc 32.5 g/dl (31.0-37.0); Mean Corpuscular Hemoglobin 30.9 pg (25.0-35.0); Mean Corpuscular Volume 95 fL (80-100); Monocytes # (Auto) 1.3 Thou/mm3 (0.0-0.8); Monocytes % (Auto) 10 % (0-12); Neutrophils # (Auto) 10.3 Thou/mm3 (1.8-7.7); Neutrophils % (Auto) 78 % (37-80); Nucleated Red Blood Cell # 0.00 Thou/mm3 (0.00-0.00); Nucleated Red Blood Cell % 0 /100 WBC (0); Platelet Count 210 Thou/mm3 (140-440); RDW Standard Deviation 45.3 fL (36.4-46.3); Red Blood Count 3.92 Miln/mm3 (4.00-5.20); White Blood Count 13.2 Thou/mm3 (3.6-11.0)
[2025-03-26 06:59] LABS: Alanine Aminotransferase 11 U/L (10-49); Albumin, Serum 3.6 gm/dL (3.4-4.8); Albumin/Globulin Ratio 1.8 (1.2-2.2); Alkaline Phosphatase 66 U/L (46-116); Anion Gap 10 (7-16); Aspartate Amino Transferase 22 U/L (0-34); BUN/Creatinine Ratio 14 Ratio (12-20); Bilirubin,Total 0.6 mg/dL (0.3-1.2); Blood Urea Nitrogen 14 mg/dL (9-23); Calcium 8.7 mg/dL (8.3-10.6); Calcium (Corrected) 9.0 mg/dL (8.5-10.1); Carbon Dioxide 31.9 mMol/L (20.0-31.0); Cardiac Risk Estimate 3.1 RATIO (3.7-5.6); Chloride 99 mMol/L (98-107); Cholesterol 100 mg/dL (132-200); Creatinine (Component) 1.0 mg/dL (0.6-1.3); Estimated Creatinine Clearance 64.9 mL/min (>60); Globulin 2.0 gm/dL (2.3-3.5); Glucose 123 mg/dL (74-106); HDL Cholesterol 32 mg/dL (40-60); LDL Cholesterol,Calculated 53 mg/dL (0-130); Magnesium 1.8 mg/dL (1.6-2.6); Osmolality,Calculated 282 (275-295); Phosphorous 3.4 mg/dL (2.4-5.1); Potassium 3.3 mMol/L (3.4-5.1); Sodium 141 mMol/L (136-145); Total Protein 5.6 gm/dL (5.7-8.2); Triglycerides 73 mg/dL (30-150); eGFR 58 See Note
[2025-03-26 07:29] LABS: INR 1.3 (0.9-1.3); Prothrombin Time 13.2 Seconds (9.0-12.2)
[2025-03-26 07:42] LABS: Glucose Estimated Average 123 mg/dL (80-131); Hemoglobin A1C 5.9 % Hgb (4.8-6.0)
[2025-03-26] MEDS: Magnesium Sulfate 2 GM Ivpb 2 GM/50 ML BAG IV (08:23)
[2025-03-26] MEDS: cefTRIAXone/D5w 1gm IV premix 1 GM/50 ML BAG IV (08:32)
--- NOTE | 2025-03-26 09:48 | ESPR_ITS ---
<Statement entered by Obey Chilel MD - 03/26/25 12:56> Pt is seen at bedside, Continues to have nausea and vomitting. Pt reports 4 episodes this morning, unable to tolerate food. Will order full liquid diet. Pt also have significant pain in the right lower extremities with echymosis noted bilaterally. Pt reports a near fall event few days ago, Right LE xray is ordered. Will continue ABX for pneumonia, pt denies SOB or cough. No fevers reported over night. urine and blood cultures are pending. Pt has not been getting out of bed very much for past 10 days at home due to pain in her knees. Will order PT. Patient was seen and examined by me personally. I have directly supervised and reviewed documentation by the team resident and agree with its findings. ------- Plan of care was discussed with the attending, Dr. Shimon Chilel, PGY-2 Documentation for date of: 03/26/25 Subjective Subjective Interval history: * Patient seen and examined at bedside. * Echo showed an EF of 60-65%. * Patient was having nausea and 4 episodes of vomiting this morning, given Zofran. * Blood and urine culture pending. * Tropes down trended. * A1c 5.9. Swallow eval passed, started full liquid diet due to patient vomiting with insulin sliding scale, glucose checks before meals. * PT ordered. * X-ray of right lower extremity ordered. Exam Vital Signs Temp Pulse Resp BP Pulse Ox O2 Del Method O2 Flow Rate 98.0 F 64 21 H 161/80 H 98 Nasal Cannula 2 03/26/25 08:00 03/26/25 08:36 03/26/25 08:00 03/26/25 08:36 03/26/25 08:00 03/26/25 08:00 03/26/25 08:00 Narrative Exam General: Obese lady. Guyanese-speaking. Mentation improved compared to admission. Neurologic: GCS 15. No gross neurological deficit, and patient able to move all 4 extremities. HEENT: Normocephalic, atraumatic, mucous membranes dry. Pupils reactive to light. Heart: Regular rate and rhythm, normal S1 and S2, no murmurs. Lungs: Decreased breath sounds in the bases bilaterally, clear to auscultation in the apices bilaterally. Abdomen: Obese, diffuse tenderness on palpation. No guarding or rebound tenderness. Extremities: Patient's right lower extremity was unwrapped revealing ecchymosis, tender to touch. No edema. 2+ radial and dorsalis pedis pulses bilaterally. Skin: Warm. Dry. No rash or ecchymoses (minus the findings above). Objective Labs 03/26/25 05:38 03/26/25 05:38 Labs: Laboratory Results - last 24 hr 03/25/25 03/25/25 03/25/25 12:37 12:55 15:38 WBC 12.4 H RBC 3.93 L Hgb 11.9 L Hct 36.2 MCV 92 MCH 30.3 MCHC 32.9 RDW Std Deviation 45.1 Plt Count 247 Neut % (Auto) 70 Lymph % (Auto) 16 Rhea % (Auto) 13 H Eos % (Auto) 0 Baso % (Auto) 0 Neut # (Auto) 8.6 H Lymph # (Auto) 2.0 Rhea # (Auto) 1.6 H Eos # (Auto) 0.0 Baso # (Auto) 0.0 Immature Gran # (Auto) 0.05 H Absolute Nucleated RBC 0.00 Immature Gran % 0 Nucleated RBC % 0 PT 13.2 H INR 1.3 APTT 28.0 VBG pH 7.40 VBG pCO2 55 VBG pO2 37 VBG O2 Sat (Richelle) 69 L VBG Base Excess 8 H Sodium 139 Potassium 2.9 L Chloride 98 Carbon Dioxide 33.5 H Anion Gap 8 BUN 15 Creatinine 1.1 Estim Creat Clear Calc 59.0 L eGFR 52 L BUN/Creatinine Ratio [address] Glu mg/dL Hemoglobin A1c Calculated Osmolality 279 Lactic Acid 0.9 Calcium 9.3 Corrected Calcium 9.6 Phosphorus 3.6 Magnesium 1.8 Total Bilirubin 0.7 AST 16 ALT 11 Alkaline Phosphatase 69 Lactate Dehydrogenase 155 Troponin I 0.055 H* 0.048 H* B-Natriuretic Peptide 373 H Total Protein 6.0 Albumin 3.6 Globulin 2.4 Albumin/Globulin Ratio 1.5 Triglycerides Cholesterol LDL Cholesterol, Calc HDL Cholesterol Cholesterol/HDL Ratio Lipase 22 Procalcitonin 0.60 H Ur Collection Type Clean Catch Urine Color Yellow Urine Clarity Hazy Urine pH 6.0 Ur Specific Bent 1.012 Urine Protein Trace Urine Glucose (UA) Negative Urine Ketones Negative Urine Blood 1+ A Urine Nitrite Positive Urine Bilirubin Negative Urine Urobilinogen (Auto) Negative Ur Leukocyte Esterase Positive Urine RBC 10 H Urine WBC 320 H Ur Squamous Epith Cells 0 Urine Bacteria Rare Ur Culture Indicated? Yes 03/26/25 05:38 WBC 13.2 H RBC 3.92 L Hgb 12.1 Hct 37.2 MCV 95 MCH 30.9 MCHC 32.5 RDW Std Deviation 45.3 Plt Count 210 D Neut % (Auto) 78 Lymph % (Auto) 11 Rhea % (Auto) 10 Eos % (Auto) 1 Baso % (Auto) 0 Neut # (Auto) 10.3 H Lymph # (Auto) 1.4 Rhea # (Auto) 1.3 H Eos # (Auto) 0.1 Baso # (Auto) 0.0 Immature Gran # (Auto) 0.05 H Absolute Nucleated RBC 0.00 Immature Gran % 0 Nucleated RBC % 0 PT 13.2 H INR 1.3 APTT VBG pH VBG pCO2 VBG pO2 VBG O2 Sat (Richelle) VBG Base Excess Sodium 141 Potassium 3.3 L Chloride 99 Carbon Dioxide 31.9 H Anion Gap 10 BUN 14 Creatinine 1.0 Estim Creat Clear Calc 64.9 eGFR 58 L BUN/Creatinine Ratio 14 [address]ucose [address] Glu mg/dL 123 Hemoglobin A1c 5.9 Calculated Osmolality 282 Lactic Acid Calcium 8.7 Corrected Calcium 9.0 Phosphorus 3.4 Magnesium 1.8 Total Bilirubin 0.6 AST 22 ALT 11 Alkaline Phosphatase 66 Lactate Dehydrogenase Troponin I B-Natriuretic Peptide Total Protein 5.6 L Albumin 3.6 Globulin 2.0 L Albumin/Globulin Ratio 1.8 Triglycerides 73 Cholesterol 100 L LDL Cholesterol, Calc 53 HDL Cholesterol 32 L Cholesterol/HDL Ratio 3.1 L Lipase Procalcitonin Ur Collection Type Urine Color Urine Clarity Urine pH Ur Specific Bent Urine Protein Urine Glucose (UA) Urine Ketones Urine Blood Urine Nitrite Urine Bilirubin Urine Urobilinogen (Auto) Ur Leukocyte Esterase Urine RBC Urine WBC Ur Squamous Epith Cells Urine Bacteria Ur Culture Indicated? ABG Interpretation ABG results: 03/25/25 12:55 VBG pH 7.40 VBG pCO2 55 VBG pO2 37 VBG Base Excess 8 H Quality Measures Quality Measures none Advance care planning discussed with:: patient Assessment & Plan Assessment Current Active Medications: Generic Name Dose Route Start Last Admin Trade Name Freq PRN Reason Stop Dose Admin Acetaminophen 1,000 mg 03/26/25 00:14 Acetaminophen 500 Mg Tablet PO 04/24/25 19:59 Q6H PRN Fever >100.4 Acetaminophen 1,000 mg 03/26/25 00:16 03/26/25 02:46 Acetaminophen 500 Mg Tablet PO 04/25/25 00:12 1,000 mg Q6HR PRN Administration PAIN SCALE 1-3 (mild Atorvastatin Calcium 40 mg 03/26/25 21:00 Atorvastatin Calcium 20 Mg Tablet PO 04/25/25 20:59 HS KUMAR Dextrose 25 ml 03/26/25 07:26 Dextrose 50%-Water Inj 50 Ml Syringe IV 04/25/25 07:25 Q15MIN PRN BG 50-70 responsive npo pt Dextrose 50 ml 03/26/25 07:26 Dextrose 50%-Water Inj 50 Ml Syringe IV 04/25/25 07:25 Q15MIN PRN BG <50 OR BG <70 & pt unresponsive Furosemide 20 mg 03/26/25 09:00 03/26/25 08:36 Furosemide 20 Mg Tablet PO 04/25/25 08:59 20 mg QDAY KUMAR Administration Glucagon 1 mg 03/26/25 07:26 Glucagon Inj 1 Mg Vial IM Q15MIN PRN BG <70, and no IV access Heparin Sodium (Porcine) 5,000 unit 03/25/25 22:00 03/26/25 06:03 Heparin Sod Inj 5000 Unit/Ml Vial SC 04/08/25 21:59 5,000 unit Q8HR KUMAR Administration Ceftriaxone Sodium/Dextrose 1 gm in 50 mls @ 100 mls/hr 03/26/25 09:00 03/26/25 08:32 Rocephin/D5w 1gm Iv Premix IV 04/02/25 08:59 100 mls/hr QDAY KUMAR Administration Azithromycin 500 mg/ Sodium 250 mls @ 250 mls/hr 03/26/25 09:00 Chloride IV 04/02/25 08:59 QDAY [facility] Insulin Human Lispro 0 unit 03/26/25 07:30 03/26/25 07:51 Insulin Lispro (Admelog) 1 Unit/0.01 Ml Unit SC 04/25/25 07:29 Not Given AC [facility] Protocol Ondansetron HCl 4 mg 03/26/25 08:12 03/26/25 08:24 Ondansetron Inj 2 Mg/Ml Inj 2 Ml IVP 04/24/25 23:04 4 mg Q6HR PRN Administration NAUSEA OR VOMITING Protocol Plan Summary: 75-year-old female past medical history of diabetes, hypertension, heart failure, depression, hyperlipidemia, presented to the ED with 3-day history of nausea and vomiting. Sepsis alert was initiated in the ED due to fever and hypoxia, the patient was satting at 88% on room air. She met 2 out of 4 SIRS criteria on arrival with a fever of 100.7 and a white blood cell count of 12.4. The patient was admitted for sepsis secondary to suspected pneumonia versus UTI. #Sepsis secondary to #Community-acquired pneumonia versus #Urinary tract infection * Patient met 2 out of 4 SIRS criteria on arrival, fever 100.7, WBC 12.4 on admission * Chest x-ray showed evidence of bibasilar pneumonia * Urinalysis showed 1+ blood, nitrite positive, leukocyte esterase positive, 10 RBCs, 320 WBCs * Patient was given Tylenol in the ED, became afebrile * Curb 65 score 2. 6.8% 30-day mortality Plan: * Ceftriaxone 1 g daily * Azithromycin 500 mg daily Reassessment: * Follow-up blood cultures * Follow-up urine cultures * Trend WBC count, has up trended slightly #Intractable nausea and vomiting * Patient presented with 3-day history of nausea and vomiting * Patient had 4 episodes of vomiting the morning of 03/26/2025 Plan: * Zofran 4 mg every 4 hours as needed * Switched to full liquid diet * Aspiration precautions, elevate head of bed #Hypokalemia * Potassium 2.9 on arrival, received 40 mill EQ in the ED Plan: * Will trend with daily labs and replete as necessary Reassessment: * Repeat potassium on hospital day 1 was 3.3 #Elevated troponins (Resolved) #NSTEMI type II (Resolved) * Patient's tropes were elevated on arrival, down-trended * EKG showed a sinus rhythm, right bundle branch block, ventricular premature complexes. #[id number] type 2 diabetes * Per patient's daughter the patient takes Ozempic 1 mg * Patient also take metformin 500 BID at home * A1c 5.9 Plan: * Insullin sliding scale * Glucose checks before meals * Full liquid diet due to recent nausea and vomiting #Heart failure with preserved ejection fraction #CHF exacerbation * Per patient's daughter, the patient was prescribed prazosin 1 mg 3 times daily in [place] for her heart failure * Also per patient's daughter, the patient takes furosemide and hydrochlorothiazide * Echo on 04/21/2023 showed an ejection fraction of 60-65% * Patient has crackles on exam * BNP 373 Plan: * Fluid restriction 1800 mL * Strict ins & outs * Lasix 20 mg BID Reassessment: * Echo showed a normal EF, mild left atrial enlargement, grade 1 diastolic dysfunction #Hypertension * Per patient's daughter, the patient has a history of hypertension and takes losartan, however losartan is not in the patient's home medication list * Difficult to take the patient's blood pressure due to body habitus, however patient's blood pressure has been consistently in stage II hypertension, reflecting possible accuracy but not precision in the readings * Patient unable to take home prazosin due to nausea vomiting at this time Plan: * Hydralazine 10 mg IV push every 4 hours as needed for SBP greater than or equal to 140 Reassessment: * Monitor blood pressure and possible reflex tachycardia #Anxiety/depression * Per patient's daughter the patient takes fluoxetine and Lyrica Plan: * Holding for now #Hyperlipidemia * Per patient's daughter patient takes atorvastatin 40 mg Plan: * Continue home atorvastatin 40 mg daily Hospital Maintenance: DVT ppx: Subcu heparin 5000 units Q8 GI ppx: Not indicated Diet: Pending swallow eval IV lines: Peripheral IVs Code status: Full code Dispo: Patient admitted to telemetry for sepsis secondary to pneumonia versus UTI. Treating with ceftriaxone and azithromycin. Patient having intractable nausea and vomiting. Treating with Zofran and monitoring. Patient was seen and discussed with my attending physician Dr. Shimon UREÑA and my senior resident Dr. Getachew UREÑA PGY-2. Senthil Cordero DO PGY-1 Attending Provider Attestation/Addendum 75-year-old female admitted for shortness of breath, cough. Found to have sepsis secondary to pneumonia. Patient keeps asking for burp bag. She is alert and oriented. She denies chest pain. She has no confusion. Will continue current treatment with antibiotics. I discussed with and supervised the resident physician who took care of this patient. I agree with the assessment and plan as above.
--- NOTE | 2025-03-26 10:01 | XR_ITS ---
Examination: Tibia-Fibula, right, 2 views Technique: Tibia-fibula AP lateral 2 views Date and time of exam: March 26, 2025, 11:30 a.m. INDICATIONS: Ecchymoses noted today in the lower leg FINDINGS: Severe osteopenia No fracture No cortical bone destruction Soft tissue vascular calcification IMPRESSION: No cortical bone destruction or foreign body
[2025-03-26] MEDS: AZITHROMYCIN INJ 500 MG in SODIUM CHLORIDE 0.9% 250 ML 250 ML 250 MG IV (11:00)
--- NOTE | 2025-03-26 12:06 | PC.PT ---
Patient was approached for PT eval at 1104. Patient was vomiting and felt very nauseous and generally unwell. Patient asked to be seen tomorrow when she is hopefully feeling better. Will hold PT eval today and re-attempt at another time. RN made aware.
[2025-03-26] MEDS: PROMETHAZINE INJ 25 MG in SODIUM CHLORIDE 0.9% 50 ML 153 MG IV (12:58)
[2025-03-26] MEDS: ATORVASTATIN CALCIUM 20 MG TABLET 40 MG PO (21:09)
[2025-03-27] VITALS (12 sets, daily range): BP systolic 109–178; BP diastolic 59–86; PULSE 62–94; RESP 18–26; TEMP 36.3–36.9; O2SAT 92–98; BMI 42.6; BMI 11.0
[2025-03-27] MEDS: HEPARIN SOD INJ 5000 UNIT/ML VIAL SC ×3 (05:41→21:28)
[2025-03-27 05:49] LABS: Basophils # (Auto) 0.0 Thou/mm3 (0.0-0.2); Basophils % (Auto) 0 % (0-2.5); Eosinophils # (Auto) 0.0 Thou/mm3 (0.0-0.5); Eosinophils % (Auto) 0 % (0-10); Hematocrit 35.8 % (36.0-46.0); Hemoglobin 11.7 g/dL (12.0-16.0); Immature Granulocytes Auto 0.09 Thou/mm3 (0.00-0.00); Lymphocytes # (Auto) 1.8 Thou/mm3 (1.0-4.8); Lymphocytes % (Auto) 12 % (10-50); Mean Corpuscular HGB Conc 32.7 g/dl (31.0-37.0); Mean Corpuscular Hemoglobin 30.0 pg (25.0-35.0); Mean Corpuscular Volume 92 fL (80-100); Monocytes # (Auto) 1.5 Thou/mm3 (0.0-0.8); Monocytes % (Auto) 10 % (0-12); Neutrophils # (Auto) 11.5 Thou/mm3 (1.8-7.7); Neutrophils % (Auto) 77 % (37-80); Nucleated Red Blood Cell # 0.00 Thou/mm3 (0.00-0.00); Nucleated Red Blood Cell % 0 /100 WBC (0); Platelet Count 211 Thou/mm3 (140-440); RDW Standard Deviation 43.8 fL (36.4-46.3); Red Blood Count 3.90 Miln/mm3 (4.00-5.20); White Blood Count 15.0 Thou/mm3 (3.6-11.0)
[2025-03-27 06:18] LABS: Alanine Aminotransferase 14 U/L (10-49); Albumin, Serum 3.7 gm/dL (3.4-4.8); Albumin/Globulin Ratio 1.7 (1.2-2.2); Alkaline Phosphatase 66 U/L (46-116); Anion Gap 10 (7-16); Aspartate Amino Transferase 29 U/L (0-34); BUN/Creatinine Ratio 11 Ratio (12-20); Bilirubin,Total 0.7 mg/dL (0.3-1.2); Blood Urea Nitrogen 11 mg/dL (9-23); Calcium 8.7 mg/dL (8.3-10.6); Calcium (Corrected) 8.9 mg/dL (8.5-10.1); Carbon Dioxide 32.6 mMol/L (20.0-31.0); Chloride 94 mMol/L (98-107); Creatinine (Component) 1.0 mg/dL (0.6-1.3); Estimated Creatinine Clearance 58.1 mL/min (>60); Globulin 2.2 gm/dL (2.3-3.5); Glucose 170 mg/dL (74-106); Osmolality,Calculated 277 (275-295); Potassium 3.1 mMol/L (3.4-5.1); Sodium 137 mMol/L (136-145); Total Protein 5.9 gm/dL (5.7-8.2); eGFR 58 See Note
[2025-03-27] MEDS: cefTRIAXone/D5w 1gm IV premix 1 GM/50 ML BAG IV (07:56)
--- NOTE | 2025-03-27 08:11 | ESPR_ITS ---
<Statement entered by Obey Chilel MD - 03/27/25 16:20> Pt is seen at bedside, R LE xray is negative for fractures. Urine culture grew GNR, based on previous cultures will escalate abx to meropenem. PT evaluation is pending. Patient was seen and examined by me personally. I have directly supervised and reviewed documentation by the team resident and agree with its findings. ------- Plan of care was discussed with the attending, Dr. Adama Chilel, PGY-2 Documentation for date of: 03/27/25 Subjective Subjective Interval history: * Patient seen and examined at bedside. * White count has trended up to 15 from 13.2, urine positive for gram-negative rods, ESBL in the past, escalating antibiotics, changed ceftriaxone to meropenem. Continue azithromycin. * Patient was vomiting yesterday, PT was not attempted yesterday due to vomiting, will reattempt today. * Right lower extremity x-ray was negative for fracture. * Urine culture positive for gram-negative rods. * Blood cultures negative after 24 hours. Exam Vital Signs Temp Pulse Resp BP Pulse Ox O2 Del Method O2 Flow Rate 97.6 F 78 24 H 145/82 H 96 Nasal Cannula 2 03/27/25 04:00 03/27/25 07:56 03/27/25 04:00 03/27/25 07:56 03/27/25 04:00 03/27/25 04:00 03/27/25 04:00 Narrative Exam General: Obese lady. Neurologic: GCS 15. No gross neurological deficit, and patient able to move all 4 extremities. HEENT: Normocephalic, atraumatic, mucous membranes dry. Pupils reactive to light. Heart: Regular rate and rhythm, normal S1 and S2, no murmurs. Lungs: Decreased breath sounds in the bases bilaterally, clear to auscultation in the apices bilaterally. Abdomen: Obese. Soft and nontender. No guarding or rebound tenderness. Extremities: Patient's right lower extremity was unwrapped revealing ecchymosis, tender to touch. No edema. 2+ radial and dorsalis pedis pulses bilaterally. Skin: Warm. Dry. No rash or ecchymoses (minus the findings above). Objective Labs 03/28/25 04:30 03/28/25 04:30 Labs: Laboratory Results - last 24 hr 03/27/25 04:59 WBC 15.0 H RBC 3.90 L Hgb 11.7 L Hct 35.8 L MCV 92 MCH 30.0 MCHC 32.7 RDW Std Deviation 43.8 Plt Count 211 Neut % (Auto) 77 Lymph % (Auto) 12 [place] % (Auto) 10 Eos % (Auto) 0 Baso % (Auto) 0 Neut # (Auto) 11.5 H Lymph # (Auto) 1.8 [place] # (Auto) 1.5 H Eos # (Auto) 0.0 Baso # (Auto) 0.0 Immature Gran # (Auto) 0.09 H Absolute Nucleated RBC 0.00 Immature Gran % 1 H Nucleated RBC % 0 Sodium 137 Potassium 3.1 L Chloride 94 L Carbon Dioxide 32.6 H Anion Gap 10 BUN 11 Creatinine 1.0 Estim Creat Clear Calc 58.1 L eGFR 58 L BUN/Creatinine Ratio 11 L Glucose 170 H Calculated Osmolality 277 Calcium 8.7 Corrected Calcium 8.9 Total Bilirubin 0.7 AST 29 ALT 14 Alkaline Phosphatase 66 Total Protein 5.9 Albumin 3.7 Globulin 2.2 L Albumin/Globulin Ratio 1.7 ABG Interpretation ABG results: 03/25/25 12:55 VBG pH 7.40 VBG pCO2 55 VBG pO2 37 VBG Base Excess 8 H Quality Measures Quality Measures none Advance care planning discussed with:: patient and child Assessment & Plan Assessment Current Active Medications: Generic Name Dose Route Start Last Admin Trade Name Freq PRN Reason Stop Dose Admin Acetaminophen 650 mg 03/27/25 07:39 Acetaminophen 500 Mg Tablet PO 04/24/25 19:59 Q6H PRN Fever >100.4 and pain Albuterol/Ipratropium 3 ml 03/26/25 12:57 Albuterol/Ipratropium (Duoneb) Rt Sarai 3 Ml Nebu INH 04/25/25 14:59 Q4HRRT PRN SHORTNESS OF BREATH OR WHEEZE Atorvastatin Calcium 40 mg 03/26/25 21:00 03/26/25 21:09 Atorvastatin Calcium 20 Mg Tablet PO 04/25/25 20:59 40 mg HS KUMAR Administration Dextrose 25 ml 03/26/25 07:26 Dextrose 50%-Water Inj 50 Ml Syringe IV 04/25/25 07:25 Q15MIN PRN BG 50-70 responsive npo pt Dextrose 50 ml 03/26/25 07:26 Dextrose 50%-Water Inj 50 Ml Syringe IV 04/25/25 07:25 Q15MIN PRN BG <50 OR BG <70 & pt unresponsive Furosemide 20 mg 03/26/25 09:00 03/27/25 07:56 Furosemide 20 Mg Tablet PO 04/25/25 08:59 20 mg QDAY KUMAR Administration Glucagon 1 mg 03/26/25 07:26 Glucagon Inj 1 Mg Vial IM Q15MIN PRN BG <70, and no IV access Heparin Sodium (Porcine) 5,000 unit 03/25/25 22:00 03/27/25 05:41 Heparin Sod Inj 5000 Unit/Ml Vial SC 04/08/25 21:59 5,000 unit Q8HR KUMAR Administration Hydralazine HCl 10 mg 03/26/25 10:21 Hydralazine Inj 20 Mg/Ml Vial IVP 04/25/25 10:20 Q4HR PRN Hypertensive Emergency Ceftriaxone Sodium/Dextrose 1 gm in 50 mls @ 100 mls/hr 03/26/25 09:00 03/27/25 07:56 Rocephin/D5w 1gm Iv Premix IV 04/02/25 08:59 100 mls/hr QDAY KUMAR Administration Azithromycin 500 mg/ Sodium 250 mls @ 250 mls/hr 03/26/25 09:00 03/26/25 11:00 Chloride IV 04/02/25 08:59 250 mls/hr QDAY KUMAR Administration Insulin Human Lispro 0 unit 03/26/25 07:30 03/27/25 07:37 Insulin Lispro (Admelog) 1 Unit/0.01 Ml Unit SC 04/25/25 07:29 Not Given AC [facility] Protocol Ondansetron HCl 4 mg 03/26/25 10:02 Ondansetron Inj 2 Mg/Ml Inj 2 Ml IVP 04/25/25 08:11 Q4HR PRN NAUSEA OR VOMITING Protocol Plan Summary: 75-year-old female past medical history of diabetes, hypertension, heart failure, depression, hyperlipidemia, presented to the ED with 3-day history of nausea and vomiting. Sepsis alert was initiated in the ED due to fever and hypoxia, the patient was satting at 88% on room air. She met 2 out of 4 SIRS criteria on arrival with a fever of 100.7 and a white blood cell count of 12.4. The patient was admitted for sepsis secondary to suspected pneumonia versus UTI. #Sepsis secondary to #Community-acquired pneumonia versus # Gram-negative eli urinary tract infection * Patient met 2 out of 4 SIRS criteria on arrival, fever 100.7, WBC 12.4 on admission * Chest x-ray showed evidence of bibasilar pneumonia * Urinalysis showed 1+ blood, nitrite positive, leukocyte esterase positive, 10 RBCs, 320 WBCs * Patient was given Tylenol in the ED, became afebrile * Curb 65 score 2. 6.8% 30-day mortality Plan: * Azithromycin 500 mg IV daily * Meropenem 1 g IV every 8 hours Reassessment: * Blood cultures negative * Urine positive for gram-negative rods * Trend WBC count #Intractable nausea and vomiting * Patient presented with 3-day history of nausea and vomiting * Patient had 4 episodes of vomiting the morning of 03/26/2025 * Improving as of 03/27/2025 Plan: * Zofran 4 mg every 4 hours as needed * Full liquid diet * Aspiration precautions, elevate head of bed #Hypokalemia * Potassium 2.9 on arrival, received 40 mill EQ in the ED Plan: * Will trend with daily labs and replete as necessary #[id number] type 2 diabetes * Per patient's daughter the patient takes Ozempic 1 mg * Patient also take metformin 500 BID at home * A1c 5.9 Plan: * Insullin sliding scale * Glucose checks before meals * Full liquid diet due to recent nausea and vomiting #Heart failure with preserved ejection fraction #CHF exacerbation * Per patient's daughter, the patient was prescribed prazosin 1 mg 3 times daily in [place] for her heart failure * Also per patient's daughter, the patient takes furosemide and hydrochlorothiazide * Echo on 04/21/2023 showed an ejection fraction of 60-65% * Patient has crackles on exam * BNP 373 Plan: * Fluid restriction 1800 mL * Strict ins & outs * Lasix 20 mg BID Reassessment: * Echo showed a normal EF, mild left atrial enlargement, grade 1 diastolic dysfunction #Hypertension * Per patient's daughter, the patient has a history of hypertension and takes losartan * Difficult to take the patient's blood pressure due to body habitus, however patient's blood pressure has been consistently in stage II hypertension, reflecting possible accuracy but not precision in the readings Plan: * Restarted home losartan 50 mg p.o. twice daily #Anxiety/depression * Per patient's daughter the patient takes fluoxetine and Lyrica Plan: * Restarted home fluoxetine 40 mg p.o. daily #Hyperlipidemia * Per patient's daughter patient takes atorvastatin 40 mg Plan: * Continue home atorvastatin 40 mg daily #Elevated troponins (Resolved) #NSTEMI type II (Resolved) * Patient's tropes were elevated on arrival, down-trended * EKG showed a sinus rhythm, right bundle branch block, ventricular premature complexes. Hospital Maintenance: DVT ppx: Subcu heparin 5000 units Q8 GI ppx: Not indicated Diet: Full liquid IV lines: Peripheral IVs Code status: Full code Dispo: Patient admitted to telemetry for sepsis secondary to pneumonia and UTI. Gram-negative eli bacteriuria, switched ceftriaxone to meropenem, continuing azithromycin. Patient was seen and discussed with my attending physician Dr. Adama UREÑA and my senior resident Dr. Getachew UREÑA PGY-2. Senthil Cordero DO PGY-1. Attending Provider Attestation/Addendum I have examined the patient, reviewed labs and imaging findings, discussed the case with the resident(s), and reviewed entered orders. I agree with the plan of care as outlined in this note, with these additional summaries/recommendations: Patient with persistent issues with altered mental status. White count increased today despite Rocephin for UTI. On review of old urine cultures, patient has grown ESBL so we will broaden spectrum to include meropenem at this time. Continue to monitor clinically and with labs. Trenton Galan MD
[2025-03-27 08:29] LABS: Magnesium 1.8 mg/dL (1.6-2.6)
[2025-03-27] MEDS: AZITHROMYCIN INJ 500 MG in SODIUM CHLORIDE 0.9% 250 ML 250 ML 250 MG IV (08:51)
--- NOTE | 2025-03-27 10:42 | PC.SS ---
follow up note: Patient is from home and lives alone. PT eval pending. Physician team thinks patient may need short term rehab. Patient on i.v. antibiotics. SS will follow up with patient after PT eval
[2025-03-27] MEDS: INSULIN LISPRO (AdmeLOG) 1 UNIT/0.01 ML UNIT SC (12:20)
--- NOTE | 2025-03-27 18:45 | PC.NURSE ---
Discharged home in stable condition with all personal belongings, discharge RX, PEG tube in place. To home via transport, accompanied by transport team. IV and telemetry DC'd prior to transport.
[2025-03-27] MEDS: ATORVASTATIN CALCIUM 20 MG TABLET 40 MG PO (20:05)
[2025-03-27] MEDS: LOSARTAN POTASSIUM 25 MG TABLET 50 MG PO (20:07)
[2025-03-27] MEDS: MEROPENEM INJ 1,000 MG in SODIUM CHLORIDE 0.9% (Popper) 50 ML 100 MG IV (21:26)
[2025-03-27] MEDS: ACETAMINOPHEN 500 MG TABLET 650 MG PO (21:37)
[2025-03-28] VITALS (10 sets, daily range): BP systolic 136–165; BP diastolic 62–89; PULSE 20–90; RESP 13–30; TEMP 36.1–36.6; O2SAT 95–99; BMI 41.8; BMI 12.0
[2025-03-28] MEDS: HEPARIN SOD INJ 5000 UNIT/ML VIAL SC ×3 (05:23→21:10)
[2025-03-28] MEDS: MEROPENEM INJ 1,000 MG in SODIUM CHLORIDE 0.9% (Popper) 50 ML 100 MG IV ×3 (05:23→21:10)
[2025-03-28 05:33] LABS: Basophils # (Auto) 0.0 Thou/mm3 (0.0-0.2); Basophils % (Auto) 0 % (0-2.5); Eosinophils # (Auto) 0.1 Thou/mm3 (0.0-0.5); Eosinophils % (Auto) 1 % (0-10); Hematocrit 36.5 % (36.0-46.0); Hemoglobin 12.0 g/dL (12.0-16.0); Immature Granulocytes Auto 0.13 Thou/mm3 (0.00-0.00); Lymphocytes # (Auto) 1.6 Thou/mm3 (1.0-4.8); Lymphocytes % (Auto) 14 % (10-50); Mean Corpuscular HGB Conc 32.9 g/dl (31.0-37.0); Mean Corpuscular Hemoglobin 30.4 pg (25.0-35.0); Mean Corpuscular Volume 92 fL (80-100); Monocytes # (Auto) 1.5 Thou/mm3 (0.0-0.8); Monocytes % (Auto) 13 % (0-12); Neutrophils # (Auto) 8.3 Thou/mm3 (1.8-7.7); Neutrophils % (Auto) 71 % (37-80); Nucleated Red Blood Cell # 0.00 Thou/mm3 (0.00-0.00); Nucleated Red Blood Cell % 0 /100 WBC (0); Platelet Count 180 Thou/mm3 (140-440); RDW Standard Deviation 46.0 fL (36.4-46.3); Red Blood Count 3.95 Miln/mm3 (4.00-5.20); White Blood Count 11.7 Thou/mm3 (3.6-11.0)
[2025-03-28 05:58] LABS: Alanine Aminotransferase 25 U/L (10-49); Albumin, Serum 3.5 gm/dL (3.4-4.8); Albumin/Globulin Ratio 1.5 (1.2-2.2); Alkaline Phosphatase 71 U/L (46-116); Anion Gap 9 (7-16); Aspartate Amino Transferase 42 U/L (0-34); BUN/Creatinine Ratio 15 Ratio (12-20); Bilirubin,Total 0.5 mg/dL (0.3-1.2); Blood Urea Nitrogen 18 mg/dL (9-23); Calcium 8.7 mg/dL (8.3-10.6); Calcium (Corrected) 9.1 mg/dL (8.5-10.1); Carbon Dioxide 30.1 mMol/L (20.0-31.0); Chloride 101 mMol/L (98-107); Creatinine (Component) 1.2 mg/dL (0.6-1.3); Estimated Creatinine Clearance 48.4 mL/min (>60); Globulin 2.3 gm/dL (2.3-3.5); Glucose 126 mg/dL (74-106); Osmolality,Calculated 283 (275-295); Potassium 4.2 mMol/L (3.4-5.1); Sodium 140 mMol/L (136-145); Total Protein 5.8 gm/dL (5.7-8.2); eGFR 47 See Note
--- NOTE | 2025-03-28 07:57 | ESPR_ITS ---
<Statement entered by Obey Chilel MD - 03/28/25 20:43> Patient is seen at bedside. Currently on meropenem for ESBL UTI evident on urine culture. PT recommended SNF placement however patient's family expressed the option of home health PT. however due to patient's body habitus, she is unable to hold her weight and other family members are unable to bear her weight to help her at home. Patient reported that previous times when attempts were made by her family to help her mobilize she had repeatedly almost fallen and twisted her right leg. Patient is encouraged to continue to work with PT and will start authorization for acute rehab where she would be able to work with PT daily. Patient will receive her third day of IV meropenem tomorrow and will transition to oral meds upon discharge and will submit SNF authorization. Patient was seen and examined by me personally. I have directly supervised and reviewed documentation by the team resident and agree with its findings. ------- Plan of care was discussed with the attending, Dr. Adama Chilel, PGY-2 Documentation for date of: 03/28/25 Subjective Subjective Interval history: patient seen and examined at bedside. Urine culture growing ESBL, continues on meropenem q8hr with plan to transition to cipro or levoflox tomorrow wbc downtrending Exam Vital Signs Temp Pulse Resp BP Pulse Ox O2 Del Method O2 Flow Rate 97.5 F 61 18 136/69 H 99 Nasal Cannula 2 03/28/25 04:00 03/28/25 04:00 03/28/25 04:00 03/28/25 04:00 03/28/25 04:00 03/28/25 04:00 03/28/25 04:00 Narrative Exam General: Obese lady in no acute distress, c/f throat pain Neurologic: GCS 15. No gross neurological deficit, and patient able to move all 4 extremities. HEENT: Normocephalic, atraumatic, mucous membranes dry. Pupils reactive to light. Heart: Regular rate and rhythm, normal S1 and S2, no murmurs. Lungs: Decreased breath sounds in the bases bilaterally, clear to auscultation in the apices bilaterally. Abdomen: Obese. Soft and nontender. No guarding or rebound tenderness. normoactive bowel sounds. Extremities: Patient's right lower extremity was unwrapped revealing ecchymosis, tender to touch. No edema. 2+ radial and dorsalis pedis pulses bilaterally. Skin: Warm. Dry. No rash or ecchymoses (minus the findings above). Objective Labs 03/29/25 04:19 03/29/25 04:19 Labs: Laboratory Results - last 24 hr 03/27/25 03/28/25 04:59 04:30 WBC 11.7 H RBC 3.95 L Hgb 12.0 Hct 36.5 MCV 92 MCH 30.4 MCHC 32.9 RDW Std Deviation 46.0 Plt Count 180 D Neut % (Auto) 71 Lymph % (Auto) 14 [place] % (Auto) 13 H Eos % (Auto) 1 Baso % (Auto) 0 Neut # (Auto) 8.3 H Lymph # (Auto) 1.6 [place] # (Auto) 1.5 H Eos # (Auto) 0.1 Baso # (Auto) 0.0 Immature Gran # (Auto) 0.13 H Absolute Nucleated RBC 0.00 Immature Gran % 1 H Nucleated RBC % 0 Sodium 140 Potassium 4.2 D Chloride 101 Carbon Dioxide 30.1 Anion Gap 9 BUN 18 Creatinine 1.2 Estim Creat Clear Calc 48.4 L eGFR 47 L BUN/Creatinine Ratio 15 Glucose 126 H Calculated Osmolality 283 Calcium 8.7 Corrected Calcium 9.1 Magnesium 1.8 Total Bilirubin 0.5 AST 42 H ALT 25 Alkaline Phosphatase 71 Total Protein 5.8 Albumin 3.5 Globulin 2.3 Albumin/Globulin Ratio 1.5 ABG Interpretation ABG results: 03/25/25 12:55 VBG pH 7.40 VBG pCO2 55 VBG pO2 37 VBG Base Excess 8 H Quality Measures Quality Measures VTE prophylaxis Advance care planning discussed with:: patient Assessment & Plan Assessment Current Active Medications: Generic Name Dose Route Start Last Admin Trade Name Freq PRN Reason Stop Dose Admin Acetaminophen 650 mg 03/28/25 07:03 Acetaminophen 325 Mg Tablet PO 04/24/25 19:59 Q6H PRN Fever >100.4 and pain Albuterol/Ipratropium 3 ml 03/26/25 12:57 Albuterol/Ipratropium (Duoneb) Rt Sarai 3 Ml Nebu INH 04/25/25 14:59 Q4HRRT PRN SHORTNESS OF BREATH OR WHEEZE Atorvastatin Calcium 40 mg 03/26/25 21:00 03/27/25 20:05 Atorvastatin Calcium 20 Mg Tablet PO 04/25/25 20:59 40 mg HS KUMAR Administration Dextrose 25 ml 03/26/25 07:26 Dextrose 50%-Water Inj 50 Ml Syringe IV 04/25/25 07:25 Q15MIN PRN BG 50-70 responsive npo pt Dextrose 50 ml 03/26/25 07:26 Dextrose 50%-Water Inj 50 Ml Syringe IV 04/25/25 07:25 Q15MIN PRN BG <50 OR BG <70 & pt unresponsive Fluoxetine HCl 40 mg 03/28/25 09:00 Fluoxetine Hcl 10 Mg Capsule PO 04/27/25 08:59 QDAY KUMAR Furosemide 20 mg 03/26/25 09:00 03/27/25 07:56 Furosemide 20 Mg Tablet PO 04/25/25 08:59 20 mg QDAY KUMAR Administration Glucagon 1 mg 03/26/25 07:26 Glucagon Inj 1 Mg Vial IM Q15MIN PRN BG <70, and no IV access Heparin Sodium (Porcine) 5,000 unit 03/25/25 22:00 03/28/25 05:23 Heparin Sod Inj 5000 Unit/Ml Vial SC 04/08/25 21:59 5,000 unit Q8HR KUMAR Administration Azithromycin 500 mg/ Sodium 250 mls @ 250 mls/hr 03/26/25 09:00 03/27/25 20:06 Chloride IV 04/02/25 08:59 Infused QDAY KUMAR Infusion Meropenem 1,000 mg/ Sodium 50 mls @ 100 mls/hr 03/27/25 22:00 03/28/25 05:23 Chloride IV 04/03/25 21:59 100 mls/hr Q8HR KUMAR Administration Insulin Human Lispro 0 unit 03/26/25 07:30 03/27/25 17:10 Insulin Lispro (Admelog) 1 Unit/0.01 Ml Unit SC 04/25/25 07:29 Not Given AC KUMAR Protocol Losartan Potassium 50 mg 03/27/25 21:00 03/27/25 20:07 Losartan Potassium 25 Mg Tablet PO 04/26/25 20:59 50 mg BID KUMAR Administration Ondansetron HCl 4 mg 03/26/25 10:02 Ondansetron Inj 2 Mg/Ml Inj 2 Ml IVP 04/25/25 08:11 Q4HR PRN NAUSEA OR VOMITING Protocol Plan Summary: 75-year-old female past medical history of diabetes, hypertension, heart failure, depression, hyperlipidemia, presented to the ED with 3-day history of nausea and vomiting. Sepsis alert was initiated in the ED due to fever and hypoxia, the patient was satting at 88% on room air. She met 2 out of 4 SIRS criteria on arrival with a fever of 100.7 and a white blood cell count of 12.4. The patient was admitted for sepsis secondary to suspected pneumonia versus UTI, UCx with esbl, on meropenem, pending discharge likely tomorrow #Sepsis secondary to- resolved #Community-acquired pneumonia #ESBL UTI * Patient met 2 out of 4 SIRS criteria on arrival, fever 100.7, WBC 12.4 on admission * Chest x-ray showed evidence of bibasilar pneumonia * Urinalysis showed 1+ blood, nitrite positive, leukocyte esterase positive, 10 RBCs, 320 WBCs * Patient was given Tylenol in the ED, became afebrile * Curb 65 score 2. 6.8% 30-day mortality Plan: * Azithromycin 500 mg IV daily (3 day course) 03/26-03/28 * Meropenem 1 g IV every 8 hours (03/27- ), plan to narrow abx prior to discharge likely tomorrow, likely levoflox or nitro Reassessment: * Blood cultures ngtd @48hr * Urine positive for gram-negative rods, ESBL, sensitive to meropenem, * Trend WBC count #Heart failure with preserved ejection fraction #CHF exacerbation- resolved #grade 1 diastolic dysfunction * Per patient's daughter, the patient was prescribed prazosin 1 mg 3 times daily in [place] for her heart failure * Also per patient's daughter, the patient takes furosemide and hydrochlorothiazide * Echo on 04/21/2023 showed an ejection fraction of 60-65% * Patient has crackles on exam * BNP 373 Plan: * Fluid restriction 1800 mL * Strict ins & outs * Lasix 20 mg BID Reassessment: * Echo showed a 660-65% EF, mild left atrial enlargement, grade 1 diastolic dysfunction #Intractable nausea and vomiting- resolved * Patient presented with 3-day history of nausea and vomiting * Patient had 4 episodes of vomiting the morning of 03/26/2025 * Improving as of 03/27/2025 Plan: * Zofran 4 mg every 4 hours as needed * Carb consistent diet * Aspiration precautions, elevate head of bed * #Hypokalemia- resolved * Potassium 2.9 on arrival, received 40 mill EQ in the ED Plan: * Will trend with daily labs and replete as necessary #Kwp-[id number]-gdxruksvi type 2 diabetes- well controlled * Per patient's daughter the patient takes Ozempic 1 mg * Patient also take metformin 500 BID at home * A1c 5.9 Plan: * Insullin sliding scale * Glucose checks before meals #Hypertension * Per patient's daughter, the patient has a history of hypertension and takes losartan * Difficult to take the patient's blood pressure due to body habitus, however patient's blood pressure has been consistently in stage II hypertension, reflecting possible accuracy but not precision in the readings Plan: * Restarted home losartan 50 mg p.o. twice daily #Anxiety/depression * Per patient's daughter the patient takes fluoxetine and Lyrica Plan: * Restarted home fluoxetine 40 mg p.o. daily #Hyperlipidemia * Per patient's daughter patient takes atorvastatin 40 mg Plan: * Continue home atorvastatin 40 mg daily #Elevated troponins (Resolved) #NSTEMI type II (Resolved) * Patient's tropes were elevated on arrival, down-trended * EKG showed a sinus rhythm, right bundle branch block, ventricular premature complexes. Hospital Maintenance: DVT ppx: Subcu heparin 5000 units Q8 GI ppx: Not indicated Diet: Full liquid IV lines: Peripheral IVs Code status: Full code Dispo: Patient admitted to telemetry for sepsis secondary to pneumonia and UTI. esbl bacteriuria, continues on meropenem, last day of azithromycin for pna, plan to d/c tomorrow. Plan discussed with my attending Dr. Galan and my senior Dr. Getachew Russ MD PGY1 Attending Provider Attestation/Addendum Patient seen and examined at bedside with resident. Agree with assessment and plan as documented above. Trenton Galan MD
[2025-03-28] MEDS: LOSARTAN POTASSIUM 25 MG TABLET 50 MG PO ×2 (08:58→21:09)
[2025-03-28] MEDS: AZITHROMYCIN INJ 500 MG in SODIUM CHLORIDE 0.9% 250 ML 250 ML 250 MG IV (08:59)
--- NOTE | 2025-03-28 11:25 | PC.SS ---
PT ESCORT confirmed with patient's daughter, Monica Sanchez; plan is for the patient to discharge to SNF once medically cleared. Preferred SNF is [facility].
--- NOTE | 2025-03-28 11:34 | PC.SS ---
SNF referrals submitted on [facility]. Responses are pending.
--- NOTE | 2025-03-28 11:58 | PC.SS ---
PASSR completed. Patient meets Level II criteria. PASSR follow up is pending.
--- NOTE | 2025-03-28 15:51 | PC.SS ---
Rounding Note: Patient receiving IV antibiotic. Plan is D/C to SNF tomorrow.
[2025-03-28] MEDS: ATORVASTATIN CALCIUM 20 MG TABLET 40 MG PO (21:09)
[2025-03-28] MEDS: ACETAMINOPHEN 325 MG TABLET 650 MG PO (22:55)
[2025-03-29] VITALS (17 sets, daily range): BP systolic 149–194; BP diastolic 56–97; PULSE 62–112; RESP 14–28; TEMP 36–36.6; O2SAT 93–100; BMI 41.3
[2025-03-29] MEDS: MEROPENEM INJ 1,000 MG in SODIUM CHLORIDE 0.9% (Popper) 50 ML 100 MG IV ×2 (05:11→13:59)
[2025-03-29] MEDS: HEPARIN SOD INJ 5000 UNIT/ML VIAL SC ×2 (05:11→14:00)
[2025-03-29 05:19] LABS: Basophils # (Auto) 0.0 Thou/mm3 (0.0-0.2); Basophils % (Auto) 0 % (0-2.5); Eosinophils # (Auto) 0.2 Thou/mm3 (0.0-0.5); Eosinophils % (Auto) 3 % (0-10); Hematocrit 37.3 % (36.0-46.0); Hemoglobin 12.0 g/dL (12.0-16.0); Immature Granulocytes Auto 0.06 Thou/mm3 (0.00-0.00); Lymphocytes # (Auto) 1.2 Thou/mm3 (1.0-4.8); Lymphocytes % (Auto) 14 % (10-50); Mean Corpuscular HGB Conc 32.2 g/dl (31.0-37.0); Mean Corpuscular Hemoglobin 30.2 pg (25.0-35.0); Mean Corpuscular Volume 94 fL (80-100); Monocytes # (Auto) 0.7 Thou/mm3 (0.0-0.8); Monocytes % (Auto) 8 % (0-12); Neutrophils # (Auto) 6.3 Thou/mm3 (1.8-7.7); Neutrophils % (Auto) 74 % (37-80); Nucleated Red Blood Cell # 0.00 Thou/mm3 (0.00-0.00); Nucleated Red Blood Cell % 0 /100 WBC (0); Platelet Count 215 Thou/mm3 (140-440); RDW Standard Deviation 45.6 fL (36.4-46.3); Red Blood Count 3.98 Miln/mm3 (4.00-5.20); White Blood Count 8.5 Thou/mm3 (3.6-11.0)
[2025-03-29 06:09] LABS: Alanine Aminotransferase 29 U/L (10-49); Albumin, Serum 3.6 gm/dL (3.4-4.8); Albumin/Globulin Ratio 1.4 (1.2-2.2); Alkaline Phosphatase 77 U/L (46-116); Anion Gap 9 (7-16); Aspartate Amino Transferase 46 U/L (0-34); BUN/Creatinine Ratio 15 Ratio (12-20); Bilirubin,Total 0.5 mg/dL (0.3-1.2); Blood Urea Nitrogen 19 mg/dL (9-23); Calcium 8.6 mg/dL (8.3-10.6); Calcium (Corrected) 8.9 mg/dL (8.5-10.1); Carbon Dioxide 30.7 mMol/L (20.0-31.0); Chloride 97 mMol/L (98-107); Creatinine (Component) 1.3 mg/dL (0.6-1.3); Estimated Creatinine Clearance 43.9 mL/min (>60); Globulin 2.5 gm/dL (2.3-3.5); Glucose 104 mg/dL (74-106); Osmolality,Calculated 276 (275-295); Potassium 3.7 mMol/L (3.4-5.1); Sodium 137 mMol/L (136-145); Total Protein 6.1 gm/dL (5.7-8.2); eGFR 42 See Note
--- NOTE | 2025-03-29 07:56 | ESDS_ITS ---
<Statement entered by Brandt Hernandez MD - 04/04/25 15:18> I reviewed above note and agree with findings and plans. I have also personally examined the patient with medicine team and went over assessment and plan with medical team including engineer intern and resident physician. Planned Discharge Date 03/29/25 DS: Providers Provider Date of admission: 03/25/25 15:30 Primary care physician: Meghana Peterson PA-C Admitting Provider: Pepe Robins MD Attending Provider on Admission: Pepe Robins MD Consults: 03/26/25 04:13 Referral Registered Dietitian Routine Comment: 03/26/25 04:20 Referral Wound Care Urgent Comment: 03/26/25 10:02 Referral Physical Therapy Routine Comment: Physician Instructions: 03/28/25 21:54 Referral Infection Control Routine Comment: Instructions: esbl in urine culture Reason for Infection Control Referral: Patient In Isolation Attending Provider on DC: David Hernandez MD Discharging Provider: David Hernandez MD DS: Diagnosis Problem List Completed Was Problem List Reviewed/Reconciled?: Yes Hospital Course Hospital Course Hospital course: Hospital Course Ms. Tom Keene is a 75-year-old woman past medical history of diabetes, hypertension, heart failure, depression, hyperlipidemia, presented to the ED with 3-day history of nausea and vomiting. She was admitted for sepsis 2/2 CAP and UTI, found to have ESBL UTI. She completed a course of antibiotics with azithromycin 500 mg IV for 3 days and meropenem IV for 3 days. Her vital signs remained stable and her symtoms improved. Echo cardiogram was performed given concern for HF, which demonstrated grade 1 diastolic dysfunction and EF 60-65%. This was managed with fluid restriction and diuresis with lasix 20 po bid. Her symptoms improved. ABx were transitioned from IV abx to po to complete a 5 day course for the UTI Patient was hemodynamically stable, labs were reviewed, pain was well controlled, patient denies any shortness of breath and is saturating >94% on RA, deemed stable and medically cleared for discharge to SNF per PT recommendations. Diagnoses Sepsis secondary to- resolved Community-acquired pneumonia ESBL UTI Heart failure with preserved ejection fraction 60-65% grade 1 diastolic dysfunction Intractable nausea and vomiting- resolved Hypokalemia- resolved Xwc-[id number] type 2 diabetes- well controlled HTN HLD Anxiety Depression Elevated troponins (Resolved) NSTEMI type II (Resolved) Discharge instructions -please complete taking your antibiotic, Nitrofuranotoin 100 mg twice a day, for 2 more days - you were started on a new blood pressure medication, amlodipine. -Follow up with PCP within 1 week of discharge, if you do not have a primary care physician you can come see us at the [facility] by calling [phone] -Continue rest of medications as previously prescribed -Return to the ED or call EMS if symptoms return and/or worsen - Full thickness abrasion to right lower leg: cleanse with wound cleanser, pat dry, apply single layer of adaptic gauze to cover with allyven dressing daily -BLE hemosiderin staining and bruise over left buttocks: open to air and monitor Plan discussed with my attending Dr. David Russ MD PGY1 Time Spent with Patient Time attestation: Total time spent providing and/or coordinating discharge services: Time spent: Greater than 30 minutes Exam Vital Signs Temp Pulse Resp BP Pulse Ox O2 Del Method O2 Flow Rate 97.0 F 62 18 160/80 H 100 Nasal Cannula 1 03/29/25 04:00 03/29/25 05:36 03/29/25 04:00 03/29/25 05:36 03/29/25 04:00 03/29/25 04:00 03/29/25 04:00 Narrative Exam General: Obese lady in no acute distress, c/f throat pain Neurologic: GCS 15. No gross neurological deficit, and patient able to move all 4 extremities. HEENT: Normocephalic, atraumatic, mucous membranes dry. Pupils reactive to light. Heart: Regular rate and rhythm, normal S1 and S2, no murmurs. Lungs: Decreased breath sounds in the bases bilaterally, clear to auscultation in the apices bilaterally. Abdomen: Obese. Soft and nontender. No guarding or rebound tenderness. normoactive bowel sounds. Extremities: Patient's right lower extremity was unwrapped revealing ecchymosis, tender to touch. No edema. 2+ radial and dorsalis pedis pulses bilaterally. Skin: Warm. Dry. No rash or ecchymoses (minus the findings above). Discharge Plan Plan Patient Disposition: Xfer Skilled Nsg Fac (SNF) Patient condition on transfer: Stable Care Plan Goals: -please complete taking your antibiotic, Nitrofuranotoin 100 mg twice a day, for 2 more days - you were started on a new blood pressure medication, amlodipine. -Follow up with PCP within 1 week of discharge, if you do not have a primary care physician you can come see us at the [facility] by calling [phone] -Continue rest of medications as previously prescribed -Return to the ED or call EMS if symptoms return and/or worsen - Full thickness abrasion to right lower leg: cleanse with wound cleanser, pat dry, apply single layer of adaptic gauze to cover with allyven dressing daily -BLE hemosiderin staining and bruise over left buttocks: open to air and monitor Prescriptions/Referrals Prescriptions/Med Rec: New amlodipine 10 mg tablet 10 mg PO QDAY Qty: 30 0RF nitrofurantoin macrocrystal 100 mg capsule 100 mg PO Q6H 2 Days Qty: 8 0RF Rx Instructions: must administer with a meal/food Continued cholecalciferol (vitamin D3) 50 mcg (2,000 unit) capsule 50 mcg PO QDAY Patient Comments: take 1 capsule by mouth once daily prazosin 1 mg capsule 1 mg PO TID Patient Comments: take 1 capsule by mouth twice a day losartan 50 mg tablet 50 mg PO BID fluoxetine 40 mg capsule 40 mg PO QDAY pregabalin 50 mg capsule 50 mg PO BID calcium carbonate-vitamin D3 [Oyster Shell Calcium-Vit D3] 500 mg-10 mcg (400 unit) tablet 1 tab PO BID Ozempic 1 mg/dose (4 mg/3 mL) pen injector 1 mg SUBCUT QWEEK furosemide [Lasix] 20 mg Tablet 20 mg PO QDAY Changed atorvastatin 40 mg tablet 40 mg PO HS 30 Days Qty: 30 0RF Discontinued metformin 500 mg tablet 500 mg PO BID hydrochlorothiazide 25 mg tablet 25 mg PO QDAY No Action ferrous sulfate [FeroSul] 325 mg (65 mg iron) tablet 325 mg PO QDAY Patient Comments: take 1 tablet by mouth once daily Referrals: Meghana Peterson PA-C [Primary Care Provider] Patient/Caregiver Discharge Instructions Print Language: Romanian Stand Alone Forms: Pamela Award Info., Patient Portal Info Letter Discharge Order Discharge Orders: Discharge (Routine); Ordered 03/29/25 Ordered By: Obey Chilel Quality Discharge Quality Measures VTE prophylaxis
[2025-03-29] MEDS: LOSARTAN POTASSIUM 25 MG TABLET 50 MG PO (08:12)
--- NOTE | 2025-03-29 09:08 | PC.SS ---
Addendum entered and electronically signed by MILY Baker 03/29/25 09:16: Bedside nurse followed up with patient. Patient accessed to be coherent. No concerns reported by bedside nurse. Original Note: HACK DRIVER received phone call from patient's daughter, Monica Sanchez; requesting update on patient's possible discharge date. HACK DRIVER informed daughter that d/c date pending. Daughter informed HACK DRIVER that patient might be experiencing hallucinations due to hospital stay. HACK DRIVER relayed concern to bedside nurse. Bedside nurse to evaluate the patient.
[2025-03-29] MEDS: hydrALAZINE INJ 20 MG/ML VIAL 10 MG IVP (10:54)
--- NOTE | 2025-03-29 11:58 | PC.SS ---
FISH HATCHERY MANAGER fielded phone call from PASSR staffDaphne. FISH HATCHERY MANAGER provided update on patient. PASSR to close referral. On line closure is pending.
--- NOTE | 2025-03-29 13:52 | PC.SS ---
PASSR closed online. PASSR submitted to [facility] via [employer].
--- NOTE | 2025-03-29 16:09 | PC.SS ---
Transport initiated [employer] Preferred transport [facility]. Pending confirmation of transport time. Reference #:[id number]
[2025-03-29] MEDS: LABETALOL INJ 5 MG/ML VIAL 20 ML 10 MG IVP (16:27)
--- NOTE | 2025-03-29 19:22 | PC.NURSE ---
Daughter Monica Sanchez notified of scheduled pick-up for patient [place]. ETA is 2030
== END 2025-03-29 19:59 | disposition skilled nursing facility (03) | DRG 871 ==
LOC: SERX 13:49 → SERHOLD 15:46 → S2NX 23:48
PROVIDERS: Nurse Practitioner Family; Admitting Provider Internal Medicine; Emergency Provider Family Medicine; PCP Specialist; Visit Provider Internal Medicine
DX: A41.50 Gram-negative sepsis, unspecified (principal); I50.33 Acute on chronic diastolic (congestive) heart failure; J18.9 Pneumonia, unspecified organism; N39.0 Urinary tract infection, site not specified; Z16.12 Extended spectrum beta lactamase (ESBL) resistance; E11.9 Type 2 diabetes mellitus without complications; I11.0 Hypertensive heart disease with heart failure; R11.2 Nausea with vomiting, unspecified; I45.10 Unspecified right bundle-branch block; F32.A Depression, unspecified; Z79.899 Other long term (current) drug therapy; M25.561 Pain in right knee; E78.5 Hyperlipidemia, unspecified; R09.02 Hypoxemia; E87.6 Hypokalemia; F41.9 Anxiety disorder, unspecified; M25.562 Pain in left knee
CPT/HCPCS: 36415; 51701; 71045; 73590; 80053; 80061; 81001; 82803; 83036; 83605; 83615; 83690; 83735; 83880; 84100; 84145; 84484; 85025; 85610; 85730; 87040; 87077; 87086; 87186; 87635; 93005; 93306; 96365; 96366; 96375; 97162; 99285; J0360; J0456; J0696; J1644; J1815; J2185; J2405; J2550; J3475; J3490; J7050; J7120; A9270; J1920